=== PATIENT | female | born 1990 | race Caucasian/White ===

== ENCOUNTER 2023-11-10 14:20 | Emergency (ER) | payer BC, SELFPAY ==
[2023-11-10 14:21] VITALS: BP 192/95; PULSE 82; RESP 19; TEMP 36; O2SAT 98
[2023-11-10 14:35] LABS: Absolute Lymphocyte Count 2.59 X10^3/uL (0.83-4.51); Absolute Neutrophil Count 6.8 X10^3/uL (2.0-7.7); Basophil# 0.05 X10^3/uL; Basophil% 0.5 % (0-1); Eosinophil# 0.06 X10^3/uL; Eosinophils% 0.6 % (0-5); Hematocrit 41.9 % (37-47); Hemoglobin 14.8 g/dL (12.0-15.0); Lymphocyte # 2.59 X10^3/ul (0.83-4.51); Lymphocyte % 25.9 % (19-41); Mean Corp Hgb Conc 35.3 g/dL (32-36); Mean Corpuscular Hgb 31.9 pg (27.0-32.0); Mean Corpuscular Volume 90.3 fL (81-99); Mean Platelet Vol. 10.2 fl (6.2-12.0); Monocyte# 0.48 X10^3/uL; Monocyte% 4.8 % (0-10); NRBC Flagged by Analyzer 0 % (0-5); Neutrophil # 6.79 X10^3/uL (2.7-7.7); Neutrophil % 67.8 % (47-70); Platelet Count 275 K/mm3 (150-450); RBC Distribution Width CV 12.2 % (11.6-14.6); RBC Distribution Width SD 39.8 fl (35.1-43.9); Red Blood Count 4.64 M/mm3 (4.2-5.4)
[2023-11-10 14:42] LABS: Internal QC Validated? YES +Cl - CLEAR BKGD
[2023-11-10 14:43] LABS: Pregnancy, Serum, hCG Quali. NEGATIVE Negative; Record Kit Lot#, Serum Preg. 735774
[2023-11-10 15:02] LABS: Bacteria 0 SEEN /hpf (None Seen); Mucous, Urine 0 SEEN /hpf (<or=2+); White Blood Cells 0 SEEN /hpf (0-5)
[2023-11-10 15:09] LABS: Glucose, Dipstick Normal (Normal); Ketone-Dipstick Negative (Negative); Leukocyte Esterase-Dipstick Negative /ul (Negative); Nitrite-Dipstick Negative (Negative); Occult Blood-Urine 10 /ul (Negative); Protein-Dipstick Negative (Negative); Specific Gravity, Urine 1.015 (1.002-1.030); Urine Bilirubin Dipstick Negative (Negative); Urine Urobilinogen Normal (Normal)
[2023-11-10 15:14] LABS: Color, Urine YELLOW (Yellow); Urine Clarity Sl Cldy (Clear)
[2023-11-10 15:15] LABS: Red Blood Cells-Urine 0-5 SEEN /hpf (0-5); Squamous Epithelial Cells - UA 0-5 SEEN /hpf (5-10)
--- NOTE | 2023-11-10 15:27 | CT_ITS ---
EXAM: CT ABDOMEN AND PELVIS WITH INTRAVENOUS CONTRAST CLINICAL INDICATION: RLQ abdominal pain TECHNIQUE: Helically acquired images were obtained of the abdomen and pelvis with intravenous contrast. This CT exam was performed using one or more of the following dose reduction techniques: automated exposure control, adjustment of the mA and/or kV according to patient size, and/or use of iterative reconstruction technique. CONTRAST: IV 100mL Isovue-370 RADIATION DOSE: CTDIvol = 17.08 mGy, DLP = 1306.75 mGy-cm COMPARISON: No relevant prior studies available. FINDINGS: LIMITATIONS: Exam limited by patient size which causes artifact and decreases resolution. LOWER THORAX: Unremarkable. Lung bases are clear. No cardiomegaly. No significant pericardial effusion. ABDOMEN: LIVER: Fatty liver with hepatomegaly. GALLBLADDER AND BILE DUCTS: Unremarkable. No calcified gallstones. No gallbladder distention or wall edema. No intra- or extrahepatic biliary ductal dilation. PANCREAS: Unremarkable. No focal cystic or solid mass. SPLEEN: Unremarkable. Normal size without focal cystic or solid mass. ADRENALS: Unremarkable. No nodules. KIDNEYS AND URETERS: Unremarkable. Normal renal size and position. No hydronephrosis. STOMACH AND BOWEL: Unremarkable. No stomach or bowel distention. No focal inflammatory change. PELVIS: APPENDIX: No evidence of acute appendicitis. BLADDER: Unremarkable. REPRODUCTIVE: Unremarkable as visualized. No mass. ABDOMEN and PELVIS: INTRAPERITONEAL SPACE: Unremarkable. No ascites or other fluid collection. No free air. BONES/JOINTS: Unremarkable. No suspicious lytic or blastic abnormality. SOFT TISSUES: Unremarkable. No discrete abdominal or pelvic wall hernia. VASCULATURE: Unremarkable. Abdominal aorta is non-dilated. LYMPH NODES: Unremarkable. No enlarged lymph nodes. CT/Abdomen/Pelvis W IV Cont ONLY IMPRESSION: 1. Limited as above. 2. No definite acute or significant abnormality seen. Electronically Signed: Martir Alvarado MD at 17:04 EDT ,
[2023-11-10 15:31] VITALS: BP 158/75; PULSE 82; RESP 16; O2SAT 98
[2023-11-10] MEDS: 0.9% Normal Saline (1000mL) 1,000 ML 999 ML IV (15:34)
[2023-11-10] MEDS: Morphine 4 MG/ML Syringe IV (15:34)
[2023-11-10] MEDS: Ondansetron 4 MG/2 ML Vial IV (15:38)
[2023-11-10] MEDS: Ketorolac 15 MG/ML Vial IV (15:38)
--- NOTE | 2023-11-10 15:46 | EDS_ITS ---
<Statement entered by Peggy Casanova MD - 11/10/23 20:13> I have personally performed a face to face assessment of the patient and have reviewed the DAI Note. Patient presents secondary to lower abdominal pain. She states she was driving to [place] this morning when she got rather abrupt onset of lower abdominal pain. No vomiting or diarrhea. No fever. She denies history of anything similar. Patient lying in bed no acute distress. Head and neck examination unremarkable. Heart is regular rate and rhythm. Lung sounds are clear. Abdomen is soft with mild to moderate tenderness in both the right upper quadrant as well as over the suprapubic region. No guarding or rebound noted. Patient treated with morphine, Zofran, Toradol, and IV fluids. CBC and CMP unremarkable for any acute abnormalities. test is negative. Urinalysis reveals no evidence of infection and no evidence of hematuria. CT scan of the abdomen pelvis reveals no obvious acute abnormalities. On repeat evaluation patient still has significant tenderness in the right upper quadrant. Right upper quadrant ultrasound obtained to better evaluate the gallbladder and this reveals no acute findings. Test results discussed with the patient. She will be treated with analgesics at home and given strict return instructions. HPI History of Present Illness Chief Complaint: Abd Pain Narrative Narrative: Patient is a 33-year-old female with history of obesity, history of C-sections, presenting to the emergency department with 1 day of significant right lower quadrant abdominal pain. Patient states that she was driving to work when the pain started. She then felt sweaty and nauseous. Patient states that while she was at work she could not handle the pain and went home. Patient was crying in bed, and her brought her to the emerged department. She denies any fever or chills. She does complain of nausea. Denies any other abdominal surgeries [id number] Medical History (Updated 11/10/23 @ 18:27 by NIKOS Falk) Hypothyroid Home Medications ?Medication ?Instructions ?Recorded ?Last Taken ?Type dicyclomine 20 mg tablet 20 mg PO TID #14 tabs 11/10/23 Unknown Rx hydrocodone-acetaminophen 5-325mg 1 tab PO Q6H PRN PRN Pain 3 days 11/10/23 Unknown Rx 5mg-325mg #10 TABLETS levothyroxine 100 mcg tablet 100 mcg PO DAILY 11/10/23 Unknown History ondansetron 4 mg disintegrating 4 mg PO Q8H PRN PRN Nausea #10 tabs 11/10/23 Unknown Rx tablet Allergy/AdvReac Type Severity Reaction Status Date / Time No Known Allergies Allergy Verified 11/10/23 14:22 Social History Smoking Status: Former smoker ROS ROS ED ROS Narrative Constitutional: Negative for fever, chills, weight loss, weakness Eyes: Negative for vision loss, vision change, double vision ENT: Negative for any sore throat, ear pain, congestion Cardiovascular: Negative for any chest pain, tightness, palpitations Respiratory: Negative for any cough, sputum production, hemoptysis, dyspnea, dyspnea on exertion, orthopnea Gastrointestinal: Negative for any vomiting, diarrhea, constipation, blood in stool, blood in vomit. Positive for abdominal pain, nausea : Negative for any urinary frequency, dysuria, retention, blood in urine Muscle skeletal: Negative for any neck pain, back pain Neurological: Negative for any headache, syncope, dizziness Skin: Negative for any rashes, itching, abrasions, lacerations Psychiatric: Negative for any depression, anxiety, stress, suicidal ideation, homicidal ideation Hematologic: Negative for any excessive bruising, easy bleeding EXAM Physical Exam Narrative Exam Narrative: Vital signs reviewed. HEET: Head normocephalic atraumatic, TMs clear bilaterally. Posterior pharynx is clear, moist mucous membranes. Nares clear bilaterally. Neck: Supple with no lymphadenopathy or tenderness. No signs of meningismus. Cardiac: Regular rate and rhythm no murmurs gallops or rubs, equal peripheral pulses bilaterally. Respiratory: Lungs clear to auscultation bilaterally. No chest tenderness. Abdomen: Soft, nondistended. No abdominal bruit or pulsatile masses. No hepatosplenomegaly. Patient does have tenderness to the suprapubic area, right lower quadrant. Active bowel sounds in all quadrants. No evidence of any upper abdominal pain, no peritoneal signs. Extremities: No peripheral edema, no signs of gross trauma or deformity. Active full range of motion of all extremities. Neuro: Cranial nerves II through XII intact, no focal neurological deficits. Skin: Clean dry and intact with no rash, purpura, petechiae, vesicles or pustules. Backs/flank: No CVA tenderness, no midline spinal tenderness, no deformity. Psych: Normal mood and affect. No SI, HI or acute psychosis. Const Vital Signs: 11/10/23 14:21 11/10/23 15:31 11/10/23 17:00 Temperature 96.8 F L Temperature Source Temporal Pulse Rate 82 82 65 Respiratory Rate 19 H 16 14 Blood Pressure 192/95 H 158/75 H 130/61 H Blood Pressure Mean 127 102 84 Pulse Ox 98 98 97 Oxygen Delivery Method Room Air Room Air Room Air [facility]DM [facility] Lab Data Labs: Laboratory Results - last 24 hr 11/10/23 11/10/23 14:27 14:54 WBC 10.0 RBC 4.64 Hgb 14.8 Hct 41.9 MCV 90.3 MCH 31.9 MCHC 35.3 RDW Std Deviation 39.8 RDW Coeff of Betty 12.2 Plt Count 275 MPV 10.2 Immature Gran % (Auto) 0.400 Neut % (Auto) 67.8 Lymph % (Auto) 25.9 Bowie % (Auto) 4.8 Eos % (Auto) 0.6 Baso % (Auto) 0.5 Absolute Neuts (auto) 6.8 Absolute Lymphs (auto) 2.59 Nucleated RBC % 0 Sodium 136 Potassium 4.0 Chloride 104 Carbon Dioxide 23.0 Anion Gap 9 BUN 17 Creatinine 0.98 Est GFR (MDRD) Af Amer 84 Est GFR (MDRD) Non-Af 69 BUN/Creatinine Ratio 17.4 Glucose 109 H Calcium 9.1 Total Bilirubin 0.40 AST 26 ALT 36 Alkaline Phosphatase 75 Total Protein 8.5 H Albumin 3.9 Globulin 4.6 H Albumin/Globulin Ratio 0.8 L Serum , Qual NEGATIVE Urine Color YELLOW Urine Clarity Sl Cldy Urine pH 6.0 Ur Specific Morton 1.015 Urine Protein Negative Urine Glucose (UA) Normal Urine Ketones Negative Urine Occult Blood 10 H Urine Nitrite Negative Urine Bilirubin Negative Urine Urobilinogen Normal Ur Leukocyte Esterase Negative Urine RBC 0-5 SEEN Urine WBC 0 SEEN Ur Squamous Epith Cells 0-5 SEEN Urine Bacteria 0 SEEN Urine Mucus 0 SEEN Radiography Diagnostic Testing: Clinical Impression(s) from Imaging Studies Abdomen/Pelvis CT 11/10/23 15:27 IMPRESSION: 1. Limited as above. 2. No definite acute or significant abnormality seen. Electronically Signed: Martir Alvarado MD at 17:04 EDT , Gallbladder Ultrasound 11/10/23 17:16 IMPRESSION: Limited as above. No definite acute or significant abnormality seen. Electronically Signed: Martir Alvarado MD at 18:08 EDT , Treatment and Re-Evaluation :: Differential diagnosis includes however is not limited to: Ovarian cyst, ovarian torsion, acute appendicitis, UTI, pyelonephritis Patient is in no obvious respiratory distress, vital signs are stable, patient appears nontoxic. Patient does appear to be in mild amount of pain. Patient will receive a full abdominal workup including CBC, CMP, lipase, urinalysis, serum . CT scan of the abdomen pelvis with IV contrast will be ordered, patient also received fluids, Zofran, morphine, Toradol. Patient will be reevaluated. Patient's urinalysis was negative for infection. Laboratory values showed a normal CBC, chemistries were unremarkable, patient is not . CT of the abdomen pelvis with IV contrast showed limited as above, no definite acute or significant abnormality seen. At this time, patient continues to have pain to the right upper quadrant, right upper quadrant ultrasound will be ordered. Patient's right upper quadrant ultrasound was negative. At this time, patient be diagnosed with abdominal pain uncertain etiology. She will need to follow-up outpatient. I will provide the patient with nausea medication, Bentyl, a couple days of [place]. She will follow-up with her PCP. Given instruction to return for any worsening symptoms. All questions answered, stable for discharge. Discharge Plan Triage Chief Complaint: Abd Pain ED Midlevel Provider: Joseph Barrera ED Provider: Peggy Casanova Dx/Rx/DC Orders Clinical Impression: Abdominal pain Instructions: Abdominal Pain Prescriptions: New hydrocodone-acetaminophen 5-325 mg tablet 1 tab PO Q6H PRN PRN (Reason: Pain) 3 Days Qty: 10 0RF dicyclomine 20 mg tablet 20 mg PO TID Qty: 14 0RF ondansetron 4 mg tablet,disintegrating 4 mg PO Q8H PRN PRN (Reason: Nausea) Qty: 10 0RF No Action levothyroxine 100 mcg tablet 100 mcg PO DAILY Primary Care Provider: SHARA ALONSO Referrals: SHARA ALONSO CRNP [Primary Care Provider] - Activity Restrictions/Additional Instructions: Please follow-up outpatient. Return for any worsening symptoms. Print Language: [place] Disposition Disposition: Home, Self Care
[2023-11-10 16:18] LABS: ALB/GLOB Ratio 0.8 RATIO (0.9-2.4); AST(SGOT) 26 U/L (15-37); Alanine Aminotransfer ALT/SGPT 36 U/L (13-56); Albumin, Serum 3.9 g/dL (3.2-5.0); Alkaline Phosphatase 75 U/L (45-117); Anion Gap 9 (5-15); BUN 17 mg/dL (7-18); BUN/Creat Ratio 17.4 RATIO (10-20); Calcium,Total 9.1 mg/dL (8.5-10.1); Chloride 104 mmol/L (98-107); Creatinine, Serum 0.98 mg/dL (0.55-1.02); EST Glomerular Filtration Rate 69 mL/min (>60); Est Glom Filt Rate - Afr Amer 84 mL/min (>60); Globulin 4.6 g/dL (2.2-4.2); Glucose 109 mg/dL (74-106); Protein, Total 8.5 g/dL (6.4-8.2); Sodium Level 136 mmol/L (136-145)
[2023-11-10 17:00] VITALS: BP 130/61; PULSE 65; RESP 14; O2SAT 97
--- NOTE | 2023-11-10 17:16 | US_ITS ---
STUDY: ABDOMINAL ULTRASOUND - RIGHT UPPER QUADRANT REASON FOR VISIT: Female, 33 years old PAIN TECHNIQUE: Ultrasound evaluation of the right upper quadrant was performed with real-time and static busch-scale imaging. TECHNICAL QUALITY: Limited. Examination limited due to a combination of factors including obesity and bowel gas. COMPARISON: CT scan of the same day. FINDINGS: Liver: The liver measures 18.1 cm. There is normal echogenicity of the liver. The bile ducts are within normal limits. There is hepatic color flow. The direction of portal flow is hepatopetal. There is no demonstrated mass lesion. Gallbladder: Normal distended gallbladder. The gallbladder wall measures 2.1 mm. There is a negative sonographic Hayes''s sign. There is no pericholecystic fluid. There are no gallstones. Common Bile Duct (C.B.D.): The common bile duct measures 4 mm. Pancreas: Normal size of the head, body and tail of the pancreas. There is normal echogenicity of the pancreas. There is no demonstrated pancreatic mass or cyst. Right Kidney: Normal size of the right kidney. The right kidney measures 11.5 cm. Normal renal cortex. The right cortex measures 1.1 cm. There is no demonstrated renal mass or cyst. There is no right hydronephrosis. US/Gallbladder IMPRESSION: Limited as above. No definite acute or significant abnormality seen. Electronically Signed: Martir Alvarado MD at 18:08 EDT ,
[2023-11-10 18:33] VITALS: BP 130/61; PULSE 77; RESP 16; TEMP 36.7; O2SAT 98
== END 2023-11-10 19:12 | disposition home or self-care (01) ==
PROVIDERS: Emergency Provider Emergency Medicine; PCP Nurse Practitioner Adult Health; Visit Provider Emergency Medicine
DX: R10.31 Right lower quadrant pain (principal); R11.0 Nausea; E03.9 Hypothyroidism, unspecified; Z79.890 Hormone replacement therapy; Z79.899 Other long term (current) drug therapy; Z87.891 Personal history of nicotine dependence
CPT/HCPCS: 74177; 76705; 80053; 81001; 84703; 85025; 96361; 96374; 96375; 99284; J7030; Q9967; A4216; J2405

== ENCOUNTER 2025-05-04 21:29 | Emergency (ER) | payer BC, SELFPAY ==
[2025-05-04 21:29] VITALS: BP 207/99; PULSE 95; RESP 20; TEMP 36.8; O2SAT 100; BMI 55.5
--- NOTE | 2025-05-04 21:41 | CT_ITS ---
PROCEDURE: ABDOMEN/PELVIS W IV CONT ONLY 05/04/2025 REASON FOR EXAM: LOWER ABD PAIN TECHNIQUE: Procedure Code: [id number] Modality: CT Procedure: ABDOMEN/PELVIS W IV CONT ONLY Coronal and Sagittal reconstruction series were provided. CONTRAST: Isovue 370 VOLUME: 97 mL One or more dose reduction techniques were used (e.g., Automated exposure control, adjustment of the mA and/or kV according to patient size, use of iterative reconstruction technique. RADIATION DOSE SUMMARY: CTDlvol: 24.18 mGy DLP: 1352.08 mGycm COMPARISON: 11.10.2023 FINDINGS: The liver is again seen enlarged and measures 19 cm in midclavicular line. There are no focal enhancing liver lesions. No intra- or extrahepatic biliary duct dilatation is identified. The hepatic vasculature is patent. The gallbladder fossa is unremarkable. The spleen, pancreas, and adrenal glands are unremarkable. The kidneys are normal in size and attenuation with lobulated contour. There is no hydronephrosis or perinephric fat stranding. No renal calculi are identified. The ureters are normal in caliber and no ureteral calculi are seen. No focal or diffuse bowel wall thickening or bowel obstruction is identified. The appendix is unremarkable. Diffuse colonic fecal loading is seen likely reflecting constipation, recommend clinical correlation. The abdominal aorta and inferior vena cava appear unremarkable. No adenopathy is seen. No free intraperitoneal fluid, fluid collection or free air is identified. The urinary bladder is partially distended and show no abnormalities. Unremarkable appearance of the pelvic organs. No aggressive-appearing osseous lesions are identified. The included lower chest cuts show no gross abnormalities. CT/Abdomen/Pelvis W IV Cont ONLY IMPRESSION: No acute abnormalities detected. Hepatomegaly, unchanged. Diffuse colonic fecal loading seen likely reflecting constipation, recommend c linical correlation. Reading [facility]
[2025-05-04 21:53] VITALS: BP 186/88; PULSE 90; RESP 14; O2SAT 98
[2025-05-04] MEDS: 0.9% Normal Saline (1000mL) 1,000 ML 999 ML IV (21:53)
[2025-05-04 21:56] LABS: Mucous, Urine 0 SEEN /hpf (<or=2+); Squamous Epithelial Cells - UA 0 SEEN /hpf (5-10)
[2025-05-04 21:57] VITALS: BP 162/89; PULSE 86; RESP 14; O2SAT 100
[2025-05-04 21:58] LABS: Color, Urine Yellow (Yellow); Glucose, Dipstick Normal (Normal); Hematocrit 41.4 % (37-47); Hemoglobin 14.4 g/dL (12.0-15.0); Immature Granulocytes Count 0.030 X10^3/uL (0.0-0.0); Ketone-Dipstick Negative (Negative); Leukocyte Esterase-Dipstick Negative /ul (Negative); Mean Corp Hgb Conc 34.8 g/dL (32-36); Mean Corpuscular Volume 91.0 fL (81-99); Mean Platelet Vol. 10.0 fl (6.2-12.0); NRBC Flagged by Analyzer 0 % (0-5); Nitrite-Dipstick Negative (Negative); Occult Blood-Urine 50 /ul (Negative); Platelet Count 334 K/mm3 (150-450); Protein-Dipstick Negative (Negative); RBC Distribution Width CV 12.2 % (11.6-14.6); RBC Distribution Width SD 40.6 fl (35.1-43.9); Red Blood Count 4.55 M/mm3 (4.2-5.4); Specific Gravity, Urine 1.025 (1.002-1.030); Urine Bilirubin Dipstick Negative (Negative); White Blood Count 11.6 K/mm3 (4.4-11.0)
--- OUTSIDE RECORDS SUMMARY | 2025-05-04 22:05 | XMS RPT_ITS | CCD ---
Author Organization [facility] Care Team Providers Care Cat Driver Name Role Phone LISBETH BRUSH CNP Admitting Unavailabl LISBETH Grant CNP Primary Care Unavailabl e LISBETH BRUSH CNP Attending Unavailabl e BECK SANTILLAN Consulting Unavailable PROVIDER, UNKNOWN Consulting Unavailable TYRELL, BECK Admitting Unavailable BECK SANTILLAN Primary Care Unavailable BECK SANTILLAN Consulting Unavailable BECK SANTILLAN Attending Unavailable PROVIDER, UNKNOWN Consulting Unavailable Peggy Casanova Attending Unavailable MAST, NAOMI Primary Care Unavailable MAST MOLD CHECKER-CLINICAL PARTNER, NAOMI Primary Care Physician ([phone] MAST MOLD CHECKER-CLINICAL PARTNER, NAOMI Attending Unavailabl e MAST MOLD CHECKER-CLINICAL PARTNER, NAOMI Primary Care Unavailabl e MAST MOLD CHECKER-CLINICAL PARTNER, NAOIM Attending Unavailabl e MAST MOLD CHECKER-CLINICAL PARTNER, NAOMI Primary Care Unavailabl e Mast CLINICAL PARTNER, Naomi Primary Care Provider [phone] MAST, NAOMI Primary Care Unavailable MAST MOLD CHECKER-CLINICAL PARTNER, NAOMI Attending Unavailabl e MAST MOLD CHECKER-CLINICAL PARTNER, NAOMI Primary Care Unavailabl e Medications Current Medications Medication Drug Class(es) Dates Sig (Normalized) Sig (Original) 200 actuat albuterol 0.09 mg/actuat metered dose inhaler (1 source) beta2-Adrenergic Agonist Start: 01-19-2008 ALBUTEROL 90 MCG/ACTUATION AEROSOL INHALER 0 01/19/2008 Active amoxicillin 875 mg / clavulanate 125 mg oral tablet (1 source) Penicillin-class Antibacterial Start: 04-01-2024 End: 04-06-2024 take 1 tablet by mouth twice daily amoxicillin-clav ulanate potassium (AUGMENTIN) 875-125 mg per tablet Take 1 tablet by mouth two times a day for 5 days. 10 tablet 04/01/2024 04/06/2024 Active 12 hr buPROPion hydrochloride 150 mg extended release oral tablet (2 sources) Aminoketone Start: 03-26-2024 take 1 tablet by mouth every twelve hours buPROPion SR (WELLBUTRIN SR) 150 mg 12 hr tablet Take 1 tablet by mouth every 12 hours. 03/26/2024 Active Start: 03-26-2024 take 1 tablet by major th every hour, then take 1 tablet by mouth twice daily Wellbutrin SR 150 mg/12 hours oral tablet, extended release Dose : 150 mg = 1 tab(s), Oral, BID, # 60 tab(s), 2 Refill(s), [facility]: [facility][id number], 167, cm, 03/20/24 8:33:00 EDT, Height, kg, 03/20/24 8:33:00 EDT, Dosing Weight Start Date: 03/26/24 Status: Ordered Medication Dispense Status: Completed Quantity: 60.0 Unit: tab(s) Total Allowed Fills: 3 Fills Dispensed: 0 CPAP Supplies (1 source) Start: 01-23-2024 CPAP Supplies See Instructions, Full setup (mask/tubing/water res), # 1 EA, 3 Refill(s), Sleep apnea, 151 Start Date: 01/23/24 Status: Ordered Medication Dispense Status: Completed Quantity: 1.0 Unit: EA Total Allowed Fills: 4 Fills Dispensed: 0 Indications: Sleep apnea, unspecified; hydroCHLOROthiazide 25 mg oral tablet (4 sources) Thiazide Diuretic Start: 01-17-2025 hydroCHLOROthiazide 25 mg oral tablet Dose : 25 mg = 1 tab(s), Oral, qDay, # 90 tab(s), 1 Refill(s), Pharmacy: [facility]/pharmacy #[id number], 168, cm, 01/11/25 14:39:00 EDT, Height, kg, 01/11/25 14:39:00 EDT, Dosing Weight Start Date: 01/17/25 Status: Ordered Medication Dispense Status: Completed Quantity: 90.0 Unit: tab(s) Total Allowed Fills: 2 Fills Dispensed: 0 Start: 03-26-2024 take 1 tablet by mouth once hy droCHLOROthiazide 25 mg tablet Take 1 tablet by mouth every afternoon. 03/26/2024 Active Start: 12-20-2023 hydroCHLOROthi azide 25 mg oral tablet Dose : 25 mg = 1 tab(s), Oral, qDay, # 30 tab(s), 2 Refill(s), Pharmacy: [facility] #[id number], 167, cm, 12/20/23 8:58:00 EDT, Height, kg, 12/20/23 8:58:00 EDT, Dosing Weight Start Date: 12/20/23 Status: Ordered levothyroxine sodium 0.1 mg oral tablet (4 sources) l-Thyroxine Start: 01-17-2025 levothyroxine 100 mcg (0.1 mg) oral tablet Dose : 100 mcg = 1 tab(s), Oral, qDay, # 90 tab(s), 1 Refill(s), Pharmacy: [facility]/pharmacy #[id number], Keke's thyroiditis, 168, cm, 01/11/25 14:39:00 EDT, Height, kg, 01/11/25 14:39:00 EDT, Dosing Weight Start Date: 01/17/25 Status: Ordered Medication Dispense Status: Completed Quantity: 90.0 Unit: tab(s) Total Allowed Fills: 2 Fills Dispensed: 0 Indications: Autoimmune thyroiditis; Start: 03-26-2024 take 1 tablet by mouth once le vothyroxine (SYNTHROID) 100 mcg tablet Take 1 tablet by mouth every afternoon. 03/26/2024 Active Start: 10-18-2023 End: 01-16-2024 levothyroxine 100 mcg (0.1 m g) oral tablet Dose : 100 mcg = 1 tab(s), Oral, qDay, # 30 tab(s), 2 Refill(s), Pharmacy: [facility] #[id number], Keke's thyroiditis, 166, cm, 10/18/23 10:06:00 EDT, Height, kg, 10/18/23 10:06:00 EDT, Dosing Weight Start Date: 10/18/23 Stop Date: 01/16/24 Status: Ordered oxybutynin chloride 5 mg oral tablet (3 sources) Cholinergic Muscarinic Antagonist Start: 03-26-2024 take 1 tablet by mouth every twelve hours oxybutynin (DITROPAN) 5 mg tablet Take 1 tablet by mouth every 12 hours. 03/26/2024 Active Start: 12-21-2023 End: 03-20-2024 oxybutynin 5 mg oral tablet Dose : 5 mg = 1 tab(s), Oral, BID, # 60 tab(s), 2 Refill(s), [facility]: [facility][id number], OAB (overactive bladder), 167, cm, 12/20/23 8:58:00 EDT, Height, kg, 12/20/23 8:58:00 EDT, Dosing Weight Start Date: 12/21/23 Stop Date: 03/20/24 Status: Ordered [id number]-PM-UJI-FE- FA TAB (1 source) Start: 01-19-2008 MULTI JLT-QB-NBW-FE-FA TAB TAKE ONE DAILY 0 01/19/2008 Active Problems Active Problems Problem Classification Problem Date Documented Date Episodic/Chronic Abdominal pain (1 source) Right lower quadrant pain; Translations: [Right lower quadrant pain] Onset: 11-16-2023 Episodic Coma; stupor; and brain damage (3 sources) Daytime somnolence 12-20-2023 Episodic Genitourinary symptoms and ill-defined conditions (3 sources) Increased frequency of urination 12-20-2023 Episodic Nutritional deficiencies (1 source) Vitamin D deficiency, unspecified; Translations: [Vitamin D deficiency, unspecified] Onset: 07-21-2021 Chronic Other connective tissue disease (3 sources) Swelling of lower limb 12-20-2023 Episodic Other nutritional; endocrine; and metabolic disorders (3 sources) Body mass index 40+ - severely obese 10-18-2023 Chronic Other screening for suspected conditions (not mental disorders or infectious disease) (6 sources) Encounter for screening for cardiovascular disorders; Translations: [Encounter for screening for diabetes mellitus] Onset: 12-20-2023 Episodic Other upper respiratory infections (1 source) Sinusitis; Translations: [Chronic sinusitis, unspecified] 04-01-2024 Chronic Residual codes; unclassified (1 source) Obstructive sleep apnea syndrome 01-11-2025 Chronic Residual codes; unclassified (1 source) Sleep apnea 01-23-2024 Chronic Residual codes; unclassified (3 sources) Family history of renal cell carcinoma 12-20-2023 Episodic Comment on above: 1/2 sister Thyroid disorders (15 sources) Hypothyroidism, unspecified; Translations: [Keke thyroiditis] Onset: 07-03-2008 10-18-2023 Chronic Unclassified (9 sources) Patient encounter status 10-18-2023 Past or Other Problems Problem Classification Problem Date Documented Da te Episodic/Chronic Other complications of (1 source) Supervision of other high risk pregnancies, unspecified trimester; Translations: [Supervision of other high-risk ] Onset: 05-09-2009 05-09-2009 Episodic Other and delivery including normal (1 source) Normal in primigravida; Translations: [Encounter for supervision of normal first , unspecified trimester] Onset: 01-19-2008 Resolved: 10-17-2008 10-17-2008 Episodic Results Test Name Value Interpretation Reference Range Facility .GFRon 01-15-2025 Estimated Glomerular Filtration Rate 79 ml/min/1.73sqm Normal [facility] Comment on above: Result Comment: Stages of Chronic Kidney Disease (CKD) Stage Description eGFR(ml/min/1.73 sq.m.) CKD 1 Normal kidney function or >=90 normal kindney function with possible kidney damage (ex. Proteinuria) CKD 2 Kidney damage with mild loss 60-89 of kidney function CKD 3a Mild to moderate loss of kidney 45-59 function CKD 3b Moderate to severe loss of 30-44 of kindey function CKD 4 Severe loss of kidney function 15-29 CKD 5 Kidney failure <15 Note: (go live 2024) the eGFR calculation was updated to the 2020 CKD-EPI creatinine equation without a race factor to calculate the eGFR results. Performed By: #### B MP, GFR, LIPID, TSH #### [address] [address] BMPon 01-15-2025 BUN/Creatinine Ratio 15 ratio Normal 7-27 [facility] Comment on above: Performed By: #### B MP, GFR, LIPID, TSH #### [address] [place], [place] [address] Calcium [Mass/Vol] 9.2 mg/dL Normal 8.4-10.2 [facility] Comment on above: Performed By: #### B MP, GFR, LIPID, TSH #### [address] [place], [place] [address] Chloride [Moles/Vol] 104 mmol/L Normal 98-107 [facility] Comment on above: Performed By: #### B MP, GFR, LIPID, TSH #### [address] [address] CO2 [Moles/Vol] 28 mmol/L Normal 22-29 [facility] Comment on above: Performed By: #### B MP, GFR, LIPID, TSH #### [address] [address] Creatinine [Mass/Vol] 0.96 mg/dL High 0.51-0.95 [facility] Comment on above: Performed By: #### B MP, GFR, LIPID, TSH #### [address] [address] Electrolyte Balance 7.0 mEq/L Normal 4.0-15.[address] [facility] Comment on above: Performed By: #### B MP, GFR, LIPID, TSH #### [address] [address] Glucose [Mass/Vol] 91 mg/dL Normal 70-105 [facility] Comment on above: Performed By: #### B MP, GFR, LIPID, TSH #### [address] [address] Potassium [Moles/Vol] 4.3 mmol/L Normal 3.5-5.1 [facility] Comment on above: Performed By: #### B MP, GFR, LIPID, TSH #### [address] [address] Sodium [Moles/Vol] 139 mmol/L Normal 136-145 [facility] Comment on above: Performed By: #### B MP, GFR, LIPID, TSH #### [address] [address] Urea nitrogen [Mass/Vol] 14 mg/dL Normal 7-18 [facility] Comment on above: Performed By: #### B MP, GFR, LIPID, TSH #### [address] [address] LABORATORYOrdered By: SYSTEM SYSTEM on 01-15-2025 Calcium [Mass/Vol] 9.2 mg/dL Normal 8.4 - 10. 2 mg/dL AO ADM SS Chloride [Moles/Vol] 104 mmol/L Normal 98 - 10 7 mmol/L AO ADM SS CO2 [Moles/Vol] 28 mmol/L Normal 22 - 29 mmol/L AO ADM SS Creatinine [Mass/Vol] 0.96 mg/dL High 0.51 - 0.95 mg/dL AO ADM SS Electrolyte Balance 7.0 mEq/L Normal 4.0 - 15 .0 mEq/L AO ADM SS Estimated Glomerular Filtration Rate 79 ml/min/1.73sqm Invalid Interpretation Code AO Chemistry S Comment on above: Interpretive Data: Stages of Chronic Kidney Disease (CKD) Stage Description eGFR(ml/min/1.73 sq.m.) CKD 1 Normal kidney function or >=90 normal kindney function with possible kidney damage (ex. Proteinuria) CKD 2 Kidney damage with mild loss 60-89 of kidney function CKD 3a Mild to moderate loss of kidney 45-59 function CKD 3b Moderate to severe loss of 30-44 of kindey function CKD 4 Severe loss of kidney function 15-29 CKD 5 Kidney failure <15 Note: (go live 2024) the eGFR calculation was updated to the 2020 CKD-EPI creatinine equation without a race factor to calculate the eGFR results. Glucose [Mass/Vol] 91 mg/dL Normal 70 - 105 mg/dL AO ADM SS Potassium [Moles/Vol] 4.3 mmol/L Normal 3.5 - 5.1 mmol/L AO ADM SS Sodium [Moles/Vol] 139 mmol/L Normal 136 - 145 mmol/L AO ADM SS TSH Qn 2.85 m[IU]/L Normal 0.36 - 3.74 mcIU/mL AO ADM SS Urea nitrogen [Mass/Vol] 14 mg/dL Normal 7 - 18 mg/dL AO ADM SS Urea nitrogen/Creatinine [Mass ratio] 15 ratio Normal 7 - 27 ratio AO ADM SS LABORATORYOrdered By: Domenic Hayes on 01-15-2025 Cholesterol [Mass/Vol] 223 mg/dL High 0 - 200 mg/dL AO ADM SS Comment on above: Interpretive Data: C holesterol Reference Interval: Less than 200 Desirable 200-239 Borderline high risk 240 and above High risk Cholesterol in HDL [Mass/Vol] 39 mg/dL Low 40 - 60 mg/dL AO ADM SS Cholesterol in LDL [Mass/Vol] 155 mg/dL High 0 - 130 mg/dL AO ADM SS Triglyceride [Mass/Vol] 143 mg/dL Normal 0 - 150 mg/dL AO ADM SS Comment on above: Interpretive Data: T riglyceride Reference Interval: Less than 150 Normal 150-199 Borderline high risk 200-499 High risk 500 or higher Very high risk LIPIDon 01-15-2025 Cholesterol [Mass/Vol] 223 mg/dL High 0-200 [facility] Comment on above: Result Comment: Chol esterol Reference Interval: Less than 200 Desirable 200-239 Borderline high risk 240 and above High risk Performed By: #### B MP, GFR, LIPID, TSH #### [address] [address] Cholesterol in HDL [Mass/Vol] 39 mg/dL Low 40-60 [facility] Comment on above: Performed By: #### B MP, GFR, LIPID, TSH #### [address] [address] Cholesterol in LDL [Mass/Vol] 155 mg/dL High 0-130 [facility] Comment on above: Performed By: #### B MP, GFR, LIPID, TSH #### [address] [address] Triglyceride [Mass/Vol] 143 mg/dL Normal 0-150 [facility] Comment on above: Result Comment: Trig lyceride Reference Interval: Less than 150 Normal 150-199 Borderline high risk 200-499 High risk 500 or higher Very high risk Performed By: #### B MP, GFR, LIPID, TSH #### [address] [address] TSHon 01-15-2025 TSH Qn 2.85 m[IU]/L Normal 0.36-3.74 [facility] Comment on above: Performed By: #### B MP, GFR, LIPID, TSH #### [address] [address] CNOVon 04-01-2024 CNOV Office Visit (UCWSTR ) DERREK CURRIE ([id number]) 1990 F Date Time Provider Department 04/01/24 10:45 AM TAMARA LAO UCCOURTNEYTR During your visit today, we recorded the following information about you: Temperature Pulse Respiration Blood pressure 100.1 degrees 114/minute 18/minute 124/80 Weight 144.9 kg Tamara Lao APRN.CNP 04/01/2024 11:22 AM Signed This note was created using CareWireriter. Subjective DERREK Currie is a 33 year old female. Cough Associated symptoms include headaches and myalgias. Review of Systems Constitutional: Positive for fever. Respiratory: Positive for cough. Musculoskeletal: Positive for myalgias. Neurological: Positive for dizziness and headaches. Objective BP 124/80 Pulse 114 Temp 37.8 ?C (100.1 ?F) Resp 18 Wt (!) 144.9 kg (319 lb 7.1 oz) LMP 10/13/2008 SpO2 95% Physical Exam Assessment and Plan ASSESSMENT/PLAN: 1. Sinuitis - ICD9: 473.9, ICD10: J32.9 - Will begin treatment with Augmentin 875 mg PO BID for 5 days - Supportive care with plenty of fluids, rest, and analgesia prn. - Follow up in 3-5 days if symptoms persist or worsen. Tamara Lao APRN.CNP Medical Decision Making: Problems: Low: Acute, uncomplicated illness or injury Risk: Moderate: Drug management Medical Decision Making Level: 3 - Low Allergies As of Date: 04/01/2024 (No Known Allergies) Date Reviewed: 04/01/2024 Reviewed by: Mackenzie Perrin MA - Fully Assessed Reason for Visit: Cough [28] Cmt: headache, fever and bodyaches x 3 days Primary Visit Diagnosis:Sinuitis [J32.9] Order(s):amoxicillin-c lavulanate potassium (AUGMENTIN) 875-125 mg per tabletTake 1 tablet by mouth two times a day for 5 days.Disp: 10 tabletRfl: 0 Prescriptions as of 04/01/2024 - buPROPion SR (WELLBUTRIN SR) 150 mg 12 hr tablet Take 1 tablet by mouth every 12 hours. - hydroCHLOROthiazide 25 mg tablet Take 1 tablet by mouth every afternoon. - levothyroxine (SYNTHROID) 100 mcg tablet Take 1 tablet by mouth every afternoon. - oxybutynin (DITROPAN) 5 mg tablet Take 1 tablet by mouth every 12 hours. - amoxicillin-clavulanat e potassium (AUGMENTIN) 875-125 mg per tablet Take 1 tablet by mouth two times a day for 5 days. - QVQODFHQ-UM-IGV-FE-FA TAB TAKE ONE DAILY - ALBUTEROL 90 MCG/ACTUATION AEROSOL INHALER Problem List As Of Date 04/01/2024 Noted Resolved SUPERVIS NORMAL 1ST PREG [Z34.00] 01/19/2008 10/17/2008 ACQUIRED HYPOTHYROID NEC [E03.8] 07/03/2008 Supervision of Other High-Risk [O09.8*05/09/2009 Prescriptions ordered this encounter Disp Refills Start End AMOXICILLIN 875 MG-POTASSIUM CLAVULA* 10 t* 0 04/01/2024 04/06/2024 Route: ORAL Sig: Take 1 tablet by mouth two times a day for 5 days. Encounter Status:Closed by TAMARA LAO on 04/01/24 Normal [facility] A1Con 12-20-2023 Glucose [Mass/Vol] 97 mg/dL [facility] Comment on above: Result Comment: Marina mated Average Glucose calculated by equation ((28.7xA1C)-46.7) Performed By: #### T SH, LIPID, A1C #### [address] [address] HbA1c (Bld) [Mass fraction] 5.0 % Normal 4.3-6.4 [facility] ([place]) Comment on above: Performed By: #### T SH, LIPID, A1C #### [address] [address] LABORATORYOrdered By: Ja Patel on 12-20-2023 Cholesterol [Mass/Vol] 246 mg/dL High 0 - 200 mg/dL AO ADM SS Comment on above: Interpretive Data: C holesterol Reference Interval: Less than 200 Desirable 200-239 Borderline high risk 240 and above High risk Cholesterol in HDL [Mass/Vol] 45 mg/dL Normal 40 - 60 mg/dL AO ADM SS Cholesterol in LDL [Mass/Vol] 161 mg/dL High 0 - 130 mg/dL AO ADM SS Triglyceride [Mass/Vol] 200 mg/dL High 0 - 150 mg/dL AO ADM SS Comment on above: Interpretive Data: T riglyceride Reference Interval: Less than 150 Normal 150-199 Borderline high risk 200-499 High risk 500 or higher Very high risk LABORATORYOrdered By: SYSTEM SYSTEM on 12-20-2023 Glucose [Mass/Vol] 97 mg/dL Invalid Interpretation Code AO Chemistry S HbA1c (Bld) [Mass fraction] 5.0 % Normal 4.3 - 6.4 % AO ADM SS TSH Qn 2.60 m[IU]/L Normal 0.36 - 3.74 mcIU/mL AO ADM SS LIPIDon 12-20-2023 Cholesterol [Mass/Vol] 246 mg/dL High 0-200 [facility] ([place] Comment on above: Result Comment: Chol esterol Reference Interval: Less than 200 Desirable 200-239 Borderline high risk 240 and above High risk Performed By: #### T ROMERO, LIPID, A1C #### [address] [address] Cholesterol in HDL [Mass/Vol] 45 mg/dL Normal 40-60 [facility] ([place]) Comment on above: Performed By: #### T ROMERO, LIPID, A1C #### [address] [address] Cholesterol in LDL [Mass/Vol] 161 mg/dL High 0-130 [facility] ([place]) Comment on above: Performed By: #### T ROMERO, LIPID, A1C #### [address] [address] Triglyceride [Mass/Vol] 200 mg/dL High 0-150 [facility] ([place] Comment on above: Result Comment: Trig lyceride Reference Interval: Less than 150 Normal 150-199 Borderline high risk 200-499 High risk 500 or higher Very high risk Performed By: #### T SH, LIPID, A1C #### [address] [address] TSHon 12-20-2023 TSH Qn 2.60 m[IU]/L Normal 0.36-3.74 [facility] ([place]) Comment on above: Performed By: #### T SH, LIPID, A1C #### [address] [place], [place] [address] Abdomen/Pelvis W IV Cont ONL Yon 11-10-2023 Abdomen/Pelvis W IV Cont ONLY [facility] [address] [place], [place] [address] Abdomen/Pelvis W IV Cont ONLY MR#: [id number] Acct: [id number] Name: DERREK CURRIE Rep #: [id number] : 1990 F 33 From: Martir hollis MD PCP: HUBERT SESAY Status: REG ER Study: Abdomen/Pelvis W IV Cont ONLY Date of Exam: Exam# [id number] Ordering Dr: Joseph Barrera COPY WRITER-C [id number] EXAM: CT ABDOMEN AND PELVIS WITH INTRAVENOUS CONTRAST CLINICAL INDICATION: RLQ abdominal pain TECHNIQUE: Helically acquired images were obtained of the abdomen and pelvis with intravenous contrast. This CT exam was performed using one or more of the following dose reduction techniques: automated exposure control, adjustment of the mA and/or kV according to patient size, and/or use of iterative reconstruction technique. CONTRAST: IV 100mL Isovue-370 RADIATION DOSE: CTDIvol = 17.08 mGy, DLP = 1306.75 mGy-cm COMPARISON: No relevant prior studies available. FINDINGS: LIMITATIONS: Exam limited by patient size which causes artifact and decreases resolution. LOWER THORAX: Unremarkable. Lung bases are clear. No cardiomegaly. No significant pericardial effusion. ABDOMEN: LIVER: Fatty liver with hepatomegaly. GALLBLADDER AND BILE DUCTS: Unremarkable. No calcified gallstones. No gallbladder distention or wall edema. No intra- or extrahepatic biliary ductal dilation. PANCREAS: Unremarkable. No focal cystic or solid mass. SPLEEN: Unremarkable. Normal size without focal cystic or solid mass. ADRENALS: Unremarkable. No nodules. KIDNEYS AND URETERS: Unremarkable. Normal renal size and position. No hydronephrosis. STOMACH AND BOWEL: Unremarkable. No stomach or bowel distention. No focal inflammatory change. PELVIS: APPENDIX: No evidence of acute appendicitis. BLADDER: Unremarkable. REPRODUCTIVE: Unremarkable as visualized. No mass. ABDOMEN and PELVIS: INTRAPERITONEAL SPACE: Unremarkable. No ascites or other fluid collection. No free air. BONES/JOINTS: Unremarkable. No suspicious lytic or blastic abnormality. SOFT TISSUES: Unremarkable. No discrete abdominal or pelvic wall hernia. VASCULATURE: Unremarkable. Abdominal aorta is non-dilated. LYMPH NODES: Unremarkable. No enlarged lymph nodes. CT/Abdomen/Pelvis W IV Cont ONLY IMPRESSION: 1. Limited as above. 2. No definite acute or significant abnormality seen. Electronically Signed: Martir Alvarado MD at 17:04 EDT , CC: NIKOS Barrera; HUBERT SESAY Elevator Operator: Signed Normal [facility] CBC W/Diff, Automatedon 10-28 Absolute Lymph 2.59 X10 3/uL Normal 0.83-4.51 [facility] Comment on above: Performed By: #### L 700.6800, L100.0100, L500.4050 #### [facility] [address] [place], [address] Absolute Neut 6.8 X10 3/uL Normal 2.0-7.7 [facility] Comment on above: Performed By: #### L 700.6800, L100.0100, L500.4050 #### [facility] [address] [place], [address] Basophils/100 WBC (Bld) 0.5 % Normal 0-1 [facility] Comment on above: Performed By: #### L 700.6800, L100.0100, L500.4050 #### [facility] [address] [place], [address] Eosinophils/100 WBC (Bld) 0.6 % Normal 0-5 [facility] Comment on above: Performed By: #### L 700.6800, L100.0100, L500.4050 #### [facility] [address] [place], [address] Erythrocyte distribution width (RBC) [Ratio] 12.2 % Normal 11.6-14.6 [facility] Comment on above: Performed By: #### L 700.6800, L100.0100, L500.4050 #### [facility] [address] [place], [address] Hematocrit (Bld) [Volume fraction] 41.9 % Normal 37-47 [facility] Comment on above: Performed By: #### L 700.6800, L100.0100, L500.4050 #### [facility] [address] [place], [address] Hemoglobin (Bld) [Mass/Vol] 14.8 g/dL Normal 12.0-15.0 [facility] Comment on above: Performed By: #### L 700.6800, L100.0100, L500.4050 #### [facility] [address] [place], [address] IG% 0.400 Normal 0.0-0.9 [facility] Comment on above: Result Comment: IG% - Immature Granulocytes (promyelocytes, myelocytes and metamyelocytes) > 1% indicates that a LEFT SHIFT is Present. Performed By: #### L 700.6800, L100.0100, L500.4050 #### [facility] [address] [place], [address] Lymphocytes/100 WBC (Bld) 25.9 % Normal 19-41 [facility] Comment on above: Performed By: #### L 700.6800, L100.0100, L500.4050 #### [facility] [address] [place], [address] MCH (RBC) [Entitic mass] 31.9 pg Normal 27.0-32.0 [facility] Comment on above: Performed By: #### L 700.6800, L100.0100, L500.4050 #### [facility] [address] [place], [address] MCHC (RBC) [Mass/Vol] 35.3 g/dL Normal 32-36 [facility] Comment on above: Performed By: #### L 700.6800, L100.0100, L500.4050 #### [facility] [address] [place], [address] MCV (RBC) [Entitic vol] 90.3 fL Normal 81-99 [facility] Comment on above: Performed By: #### L 700.6800, L100.0100, L500.4050 #### [facility] [address] [place], [address] Monocytes/100 WBC (Bld) 4.8 % Normal 0-10 [facility] Comment on above: Performed By: #### L 700.6800, L100.0100, L500.4050 #### [facility] [address] [place], [address] Neutrophils/100 WBC (Bld) 67.8 % Normal 47-70 [facility] Comment on above: Performed By: #### L 700.6800, L100.0100, L500.4050 #### [facility] [address] [place], [address] Nucleated RBC (Bld) [#/Vol] 0 10*3/uL Normal 0-5 [facility] Comment on above: Performed By: #### L 700.6800, L100.0100, L500.4050 #### [facility] [address] [place], [address] Platelet mean volume (Bld) [Entitic vol] 10.2 fL Normal 6.2-12.0 [facility] Comment on above: Performed By: #### L 700.6800, L100.0100, L500.4050 #### [facility] [address] [place], [address] Platelets (Bld) [#/Vol] 275 10*3/uL Normal 150-450 [facility] Comment on above: Performed By: #### L 700.6800, L100.0100, L500.4050 #### [facility] [address] [place], [address] RBC (Bld) [#/Vol] 4.64 10*6/uL Normal 4.2-5.4 [facility] Comment on above: Performed By: #### L 700.6800, L100.0100, L500.4050 #### [facility] [address] [place], [address] RDW SD 39.8 fl Normal 35.1-43.9 [facility] Comment on above: Performed By: #### L 700.6800, L100.0100, L500.4050 #### [facility] [address] [place], [address] WBC (Bld) [#/Vol] 10.0 10*3/uL Normal 4.4-11.0 [facility] Comment on above: Performed By: #### L 700.6800, L100.0100, L500.4050 #### [facility] [address] [place], [address] Comprehensive Metabolic Prof [facility] 11-10-2023 Albumin [Mass/Vol] 3.9 g/dL Normal 3.2-5.0 [facility] Comment on above: Performed By: #### L 700.6800, L100.0100, L500.4050 #### [facility] [address] [place], [address] Albumin/Globulin [Mass ratio] 0.8 {ratio} Low 0.9-2.4 [facility] Comment on above: Performed By: #### L 700.6800, L100.0100, L500.4050 #### [facility] [address] [place], [address] ALK P 75 U/L Normal 45-117 [facility] Comment on above: Performed By: #### L 700.6800, L100.0100, L500.4050 #### [facility] [address] [place], [address] ALT [Catalytic activity/Vol] 36 U/L Normal 13-56 [facility] Comment on above: Performed By: #### L 700.6800, L100.0100, L500.4050 #### [facility] [address] [place], [address] AST [Catalytic activity/Vol] 26 U/L Normal 15-37 [facility] Comment on above: Performed By: #### L 700.6800, L100.0100, L500.4050 #### [facility] [address] [place], [address] Bilirubin [Mass/Vol] 0.40 mg/dL Normal 0.20-1.00 [facility] Comment on above: Result Comment: For patients on eltrombopag therapy, use of Dimension [place] TBIL is not recommended. Performed By: #### L 700.6800, L100.0100, L500.4050 #### [facility] [address] [place], [address] BUN/CRE 17.4 RATIO Normal 10-20 [facility] Comment on above: Performed By: #### L 700.6800, L100.0100, L500.4050 #### [facility] [address] [place], [address] CA,Total 9.1 mg/dL Normal 8.5-10.1 [facility] Comment on above: Performed By: #### L 700.6800, L100.0100, L500.4050 #### [facility] [address] [place], [address] Chloride [Moles/Vol] 104 mmol/L Normal 98-107 [facility] Comment on above: Performed By: #### L 700.6800, L100.0100, L500.4050 #### [facility] [address] [place], [address] CO2 [Moles/Vol] 23.0 mmol/L Normal 21.0-32.0 [facility] Comment on above: Performed By: #### L 700.6800, L100.0100, L500.4050 #### [facility] [address] [place], [address] Creatinine [Mass/Vol] 0.98 mg/dL Normal 0.55-1.02 [facility] Comment on above: Result Comment: The validity of the calculated GFR GFRAA in patients over 70 years has not been determined. Clinical correlation is essential. Performed By: #### L 700.6800, L100.0100, L500.4050 #### [facility] [address] [place], [address] EST GFR - AA 84 mL/min Normal >60 [facility] Comment on above: Result Comment: Afri can Palauan GFR Calc Performed By: #### L 700.6800, L100.0100, L500.4050 #### [facility] [address] [place], [address] GAP 9 Normal 5-15 [facility] Comment on above: Performed By: #### L 700.6800, L100.0100, L500.4050 #### [facility] [address] [place], [address] GFR/1.73 sq M.predicted among non-blacks MDRD (S/P/Bld) [Vol rate/Area] 69 mL/min/{1.73_m2} Normal >60 [facility] Comment on above: Result Comment: Non- GFR Calc Performed By: #### L 700.6800, L100.0100, L500.4050 #### [facility] [address] [place], [address] Globulin (S) [Mass/Vol] 4.6 g/dL High 2.2-4.2 [facility] Comment on above: Performed By: #### L 700.6800, L100.0100, L500.4050 #### [facility] [address] [place], [address] Glucose [Mass/Vol] 109 mg/dL High 74-106 [facility] Comment on above: Result Comment: Fast ing Glucose result from 100 to 125 mg/dL suggests IMPAIRED HOMEOSTASIS per A.D.A. criteria. Performed By: #### L 700.6800, L100.0100, L500.4050 #### [facility] [address] [place], [address] Potassium [Moles/Vol] 4.0 mmol/L Normal 3.5-5.1 [facility] Comment on above: Performed By: #### L 700.6800, L100.0100, L500.4050 #### [facility] [address] [place], [address] Sodium [Moles/Vol] 136 mmol/L Normal 136-145 [facility] Comment on above: Performed By: #### L 700.6800, L100.0100, L500.4050 #### [facility] [address] [place], [address] T PROT 8.5 g/dL High 6.4-8.2 [facility] Comment on above: Performed By: #### L 700.6800, L100.0100, L500.4050 #### [facility] [address] [place], [address] Urea nitrogen [Mass/Vol] 17 mg/dL Normal 7-18 [facility] Comment on above: Performed By: #### L 700.6800, L100.0100, L500.4050 #### [facility] [address] [place], [address] Emergency Department Summary on 11-10-2023 Emergency Department Summary [facility] Medical Records Department [address] [place] [address] Emergency Department Summary 11/10/23 MR#: [id number] Acct: [id number] Name: DERREK CURRIE Rep #: [id number] : 1990 33 From: Peggy Casanova MD PCP: HUBERT SESAY Status:DEP ER Location: ED I have personally performed a face to face assessment of the patient and have reviewed the DAI Note. Patient presents secondary to lower abdominal pain. She states she was driving to [place] this morning when she got rather abrupt onset of lower abdominal pain. No vomiting or diarrhea. No fever. She denies history of anything similar. Patient lying in bed no acute distress. Head and neck examination unremarkable. Heart is regular rate and rhythm. Lung sounds are clear. Abdomen is soft with mild to moderate tenderness in both the right upper quadrant as well as over the suprapubic region. No guarding or rebound noted. Patient treated with morphine, Zofran, Toradol, and IV fluids. CBC and CMP unremarkable for any acute abnormalities. test is negative. Urinalysis reveals no evidence of infection and no evidence of hematuria. CT scan of the abdomen pelvis reveals no obvious acute abnormalities. On repeat evaluation patient still has significant tenderness in the right upper quadrant. Right upper quadrant ultrasound obtained to better evaluate the gallbladder and this reveals no acute findings. Test results discussed with the patient. She will be treated with analgesics at home and given strict return instructions. HPI History of Present Illness Chief Complaint: Abd Pain Narrative Narrative: Patient is a 33-year-old female with history of obesity, history of C-sections, presenting to the emergency department with 1 day of significant right lower quadrant abdominal pain. Patient states that she was driving to work when the pain started. She then felt sweaty and nauseous. Patient states that while she was at work she could not handle the pain and went home. Patient was crying in bed, and her brought her to the emerged department. She denies any fever or chills. She does complain of nausea. Denies any other abdominal surgeries [facility] Medical History (Updated 11/10/23 @ 18:27 by NIKOS Falk) Hypothyroid Home Medications ???Medication ???Instructions ???Recorded ???Last Taken ???Type dicyclomine 20 mg tablet 20 mg PO TID #14 tabs 11/10/23 Unknown Rx hydrocodone-acetaminop hen 5-325mg 1 tab PO Q6H PRN PRN Pain 3 days 11/10/23 Unknown Rx 5mg-325mg #10 TABLETS levothyroxine 100 mcg tablet 100 mcg PO DAILY 11/10/23 Unknown History ondansetron 4 mg disintegrating 4 mg PO Q8H PRN PRN Nausea #10 tabs 11/10/23 Unknown Rx tablet Allergy/AdvReac Type Severity Reaction Status Date / Time No Known Allergies Allergy Verified 11/10/23 14:22 Social History Smoking Status: Former smoker ROS ROS ED ROS Narrative Constitutional: Negative for fever, chills, weight loss, weakness Eyes: Negative for vision loss, vision change, double vision ENT: Negative for any sore throat, ear pain, congestion Cardiovascular: Negative for any chest pain, tightness, palpitations Respiratory: Negative for any cough, sputum production, hemoptysis, dyspnea, dyspnea on exertion, orthopnea Gastrointestinal: Negative for any vomiting, diarrhea, constipation, blood in stool, blood in vomit. Positive for abdominal pain, nausea : Negative for any urinary frequency, dysuria, retention, blood in urine Muscle skeletal: Negative for any neck pain, back pain Neurological: Negative for any headache, syncope, dizziness Skin: Negative for any rashes, itching, abrasions, lacerations Psychiatric: Negative for any depression, anxiety, stress, suicidal ideation, homicidal ideation Hematologic: Negative for any excessive bruising, easy bleeding EXAM Physical Exam Narrative Exam Narrative: Vital signs reviewed. HEET: Head normocephalic atraumatic, TMs clear bilaterally. Posterior pharynx is clear, moist mucous membranes. Nares clear bilaterally. Neck: Supple with no lymphadenopathy or tenderness. No signs of meningismus. Cardiac: Regular rate and rhythm no murmurs gallops or rubs, equal peripheral pulses bilaterally. Respiratory: Lungs clear to auscultation bilaterally. No chest tenderness. Abdomen: Soft, nondistended. No abdominal bruit or pulsatile masses. No hepatosplenomegaly. Patient does have tenderness to the suprapubic area, right lower quadrant. Active bowel sounds in all quadrants. No evidence of any upper abdominal pain, no peritoneal signs. Extremities: No peripheral edema, no signs of gross trauma or deformity. Active full range of motion of all extremities. Neuro: Cranial nerves II through XII intact, no focal neurological deficits. Skin: Clean dry and intact with no rash, purpura (more content not included)... Normal [facility] Gallbladderon 11-10-2023 Gallbladder [facility] [address] [place] [id number] Gallbladder MR#: [id number] Acct: [id number] Name: DERREK CURRIE Rep #: [id number] : 1990 F 33 From: Martir hollis MD PCP: HUBERT SESAY Status: REG ER Study: Gallbladder Date of Exam: 11/10/23 Exam# [id number] Ordering Dr: Joseph Barrera COPY WRITER-C [id number] STUDY: ABDOMINAL ULTRASOUND - RIGHT UPPER QUADRANT REASON FOR VISIT: Female, 33 years old PAIN TECHNIQUE: Ultrasound evaluation of the right upper quadrant was performed with real-time and static busch-scale imaging. TECHNICAL QUALITY: Limited. Examination limited due to a combination of factors including obesity and bowel gas. COMPARISON: CT scan of the same day. FINDINGS: Liver: The liver measures 18.1 cm. There is normal echogenicity of the liver. The bile ducts are within normal limits. There is hepatic color flow. The direction of portal flow is hepatopetal. There is no demonstrated mass lesion. Gallbladder: Normal distended gallbladder. The gallbladder wall measures 2.1 mm. There is a negative sonographic Hayes''s sign. There is no pericholecystic fluid. There are no gallstones. Common Bile Duct (C.B.D.): The common bile duct measures 4 mm. Pancreas: Normal size of the head, body and tail of the pancreas. There is normal echogenicity of the pancreas. There is no demonstrated pancreatic mass or cyst. Right Kidney: Normal size of the right kidney. The right kidney measures 11.5 cm. Normal renal cortex. The right cortex measures 1.1 cm. There is no demonstrated renal mass or cyst. There is no right hydronephrosis. US/Gallbladder IMPRESSION: Limited as above. No definite acute or significant abnormality seen. Electronically Signed: Martir Alvarado MD at 18:08 EDT , CC: NIKOS Barrera; HUBERT SESAY Elevator Operator: Signed Normal [facility] ,Serum,hCG Quali.on 11-10-2023 HCG, SERUM QUAL Negative Normal [facility] Comment on above: Performed By: #### L 700.6800, L100.0100, L500.4050 #### [facility] [address] [place], [address] Urinalysis, Completeon 11-09 EPI,SQUAMOUS 0-5 SEEN Normal 5-10 [facility] Comment on above: Order Comment: CLEAN CATCH Performed By: #### L 400.0001 #### [facility] [address] [place], [address] RBC 0-5 SEEN Normal 0-5 [facility] Comment on above: Order Comment: CLEAN CATCH Performed By: #### L 400.0001 #### [facility] [address] [place], [address] BACTERIA 0 SEEN Normal None Seen [facility] Comment on above: Order Comment: CLEAN CATCH Performed By: #### L 400.0001 #### [facility] [address] [place], [address] Mucus Ql (Urine sed) 0 SEEN Normal [facility] Comment on above: Order Comment: CLEAN CATCH Performed By: #### L 400.0001 #### [facility] [address] [place], [address] WBC 0 SEEN Normal 0-5 [facility] Comment on above: Order Comment: CLEAN CATCH Performed By: #### L 400.0001 #### [facility] [address] [place], [address] [facility] 03-29-2022 [place] [address] Patient: DERREK CURRIE Phone#: : 1990 Age: 31 Gender: F Pt. Type: Out Account: [id number] Location: Ordering: LISBETH BRUSH Exam Date: 03/29/2022/17:51 Family Phys: BECK SANTILLAN Charge Code: 245818 Physician: Andrews Order #: [id number] Dose#: PROCEDURE: PELVIC ULTRASOUND, TRANSABDOMINAL ENDOVAGINAL COMPARISON: None. INDICATIONS: Irregular menstruation. TECHNIQUE: Pelvic ultrasound using transabdominal and endovaginal technique. FINDINGS: UTERUS: Size is 9.4 x 5.2 x 5.5 cm with unremarkable appearance. Endometrial thickness is 4.6 mm. ADNEXAE: Normal bilateral appearance with no significant masses. Right ovary is 4.4 x 1.9 x 2.6 cm. Left ovary is 2.8 x 1.7 x 2.3 cm. CUL-DE-SAC: Normal. No fluid or mass. OTHER: Negative. CONCLUSION: 1. Unremarkable pelvic ultrasound. Dictated by: Annamaria Yancey MD on 03/29/2022 at 18:13 Approved by: Annamaria Yancey MD on 03/29/2022 at 18:16 Normal [facility] PELVIC ENDO VAGINALon PELVIC ENDO VAGINAL [place] [id number] Patient: DERREK CURRIE Phone#: : 1990 Age: 31 Gender: F Pt. Type: Out Account: [id number] Location: Ordering: LISBETH BRUSH Exam Date: 03/29/2022/17:51 Family Phys: BECK SANTILLAN Charge Code: 801824 Physician: Andrews Order #: [id number] Dose#: PROCEDURE: PELVIC ULTRASOUND, TRANSABDOMINAL ENDOVAGINAL COMPARISON: None. INDICATIONS: Irregular menstruation. TECHNIQUE: Pelvic ultrasound using transabdominal and endovaginal technique. FINDINGS: UTERUS: Size is 9.4 x 5.2 x 5.5 cm with unremarkable appearance. Endometrial thickness is 4.6 mm. ADNEXAE: Normal bilateral appearance with no significant masses. Right ovary is 4.4 x 1.9 x 2.6 cm. Left ovary is 2.8 x 1.7 x 2.3 cm. CUL-DE-SAC: Normal. No fluid or mass. OTHER: Negative. CONCLUSION: 1. Unremarkable pelvic ultrasound. Dictated by: Annamaria Yancey MD on 03/29/2022 at 18:13 Approved by: Annamaria Yancey MD on 03/29/2022 at 18:16 Normal [facility] T4-FREE (FREE THYROXINE)on 0 07-21-2021 Free T4 [Mass/Vol] 0.94 ng/dL Normal 0.76 - 1.46 [facility] Comment on above: Result Comment: P otential of falsely elevated results when biotin concentrations are > 10 ng/mL. Performed By: #### 2 [id number] #### [facility],[address] [place], [place] [id number] TSHon 07-21-2021 TSH Qn 3.69 m[IU]/L Normal 0.35 - 3.74 [facility] Comment on above: Performed By: #### 2 40042 #### [facility],[address] [place] [address] VITAMIN D, 25 HYDROXYon 07-01 VitD 23.00 ng/mL Low 30.00 - 100 [facility] Comment on above: Result Comment: 25-O HD3 indicates both endogenous production and supplementation. 25-OHD2 is an indicator of exogenous sources, such as diet or supplementation. Therapy is based on measurement of Total 25-OHD, with levels <20 ng/mL indicative of Vitamin D deficiency, while levels between 20 ng/mL and 30 ng/mL suggest insufficiency. Optimal levels are >=30ng/mL. Vitamin D, 25-OH D3 Not Established Vitamin D, 25-OH D2 Not Established Performed By: #### 2 [id number] #### [facility],[address] [place] [address] Coronavirus 2019on 0 COVID 19 Result COPY WRITER Normal Negative for COVID19 (SARS CoV2) by PCR. [facility] Comment on above: Result Comment: Nega tive for This test was developed and its performance characteristics determined by [facility] [place]. This test has been authorized by FDA under an Emergency Use Authorization (EUA). This test has been validated in accordance with the FDA's Guidance Document Policy for Diagnostics Testing in Laboratories Certified to Perform High Complexity Testing under CLIA prior to Emergency use Authorization for Coronavirus Disease 2019 during the Public Health Emergency issued on July 28, 2019. COVID19 (SARS This test was developed and its performance characteristics determined by [facility] [place]. This test has been authorized by FDA under an Emergency Use Authorization (EUA). This test has been validated in accordance with the FDA's Guidance Document Policy for Diagnostics Testing in Laboratories Certified to Perform High Complexity Testing under CLIA prior to Emergency use Authorization for Coronavirus Disease 2019 during the Public Health Emergency issued on July 28, 2019. CoV2) by PCR. This test was developed and its performance characteristics determined by [facility] [place]. This test has been authorized by FDA under an Emergency Use Authorization (EUA). This test has been validated in accordance with the FDA's Guidance Document Policy for Diagnostics Testing in Laboratories Certified to Perform High Complexity Testing under CLIA prior to Emergency use Authorization for Coronavirus Disease 2019 during the Public Health Emergency issued on July 28, 2019. Coronavirus 2019on 0 COVID 19 Source COPY WRITER COPY WRITER Normal [facility] VitD, 1,25 Dihydroxyon 12-24 1,25 Dihydroxy VitD2 <4.0 Normal [facility] Comment on above: Performed By: #### 1 25VTD #### [facility] [address] [place] [phone] 1,25 Dihydroxy VitD3 41.8 pg/mL Normal [facility] Comment on above: Performed By: #### 1 25VTD #### [facility] [address] [place] [phone] Vit D,1,25 DiOH Normal 15.0-60.0 [facility] Comment on above: Result Comment: 41.8 This test was developed and its performance characteristics determined by [facility] [place] ([facility]). It has not been cleared or approved by the FDA. [facility] is regulated under CLIA as qualified to perform high complexity testing. This test is used for clinical purposes. It should not be regarded as investigational or for research. Performed By: #### 1 25VTD #### [facility] [address] [place] [address] HepB SurfaceAb,Quanton 04-12 HepB SurfaceAb,Quant 26.45 mIU/mL High <8.00 [facility] Comment on above: Performed By: #### A HBSQ, MEASLG, MUMPSG, RUBIGG #### [facility] Routine Lab [address] [place] [address] Measles IgG Antibodyon 04-12 Measles IgG Ab, Qual Abnormal Negative [facility] Comment on above: Result Comment: Posi tive Presence of detectable measles virus IgG antibodies. A positive result generally indicates exposure to measles virus or previous vaccination. Performed By: #### A HBSQ, MEASLG, MUMPSG, RUBIGG #### [facility] [address] [place] [address] Measles IgG Antibody Normal [facility] Comment on above: Result Comment: 129. 0 AU/mL Negative Specimens <13.5 Equivocal Specimens >=13.5 to <16.5 Positive Specimens >=16.5 The magnitude of the measured result, above the cutoff, is not indicative of the amount of antibody present. Value Negative Specimens <13.5 Equivocal Specimens >=13.5 to <16.5 Positive Specimens >=16.5 The magnitude of the measured result, above the cutoff, is not indicative of the amount of antibody present. interpreted as Negative Specimens <13.5 Equivocal Specimens >=13.5 to <16.5 Positive Specimens >=16.5 The magnitude of the measured result, above the cutoff, is not indicative of the amount of antibody present. follows: Negative Specimens <13.5 Equivocal Specimens >=13.5 to <16.5 Positive Specimens >=16.5 The magnitude of the measured result, above the cutoff, is not indicative of the amount of antibody present. Performed By: #### A HBSQ, MEASLG, MUMPSG, RUBIGG #### [facility] [address] [place] [address] Mumps IgG Abon 04-12-2019 Mumps IgG Ab 125.0 AU/mL Normal [facility] Comment on above: Performed By: #### A HBSQ, MEASLG, MUMPSG, RUBIGG #### [facility] [address] [place] [address] Mumps IgG, Qual Positive Abnormal Negative [facility] Comment on above: Performed By: #### A HBSQ, MEASLG, MUMPSG, RUBIGG #### [facility] [address] [place] [address] Rubella IgG Antibodyon 04-12 Rubella IgG Ab 7.77 Index Value Normal [facility] Comment on above: Performed By: #### A HBSQ, MEASLG, MUMPSG, RUBIGG #### [facility] Routine Lab [address] [place], [place] [address] Rubella IgG Ab, Qual Positive Abnormal Negative [facility] Comment on above: Performed By: #### A HBSQ, MEASLG, MUMPSG, RUBIGG #### [facility] [address] [place], [place] [address] CMPon 02-15-2019 Albumin [Mass/Vol] 3.9 g/dL Normal 3.4-5.0 [facility] Comment on above: Performed By: #### 2 [id number] #### [facility] [address] [place], [place] [address] Albumin/Globulin [Mass ratio] 1.4 {ratio} Normal 1.1-1.9 [facility] Comment on above: Performed By: #### 2 [id number] #### [facility] [employer] [address] [place] [address] Alk Phos 64 Int._Unit/L Normal 33-110 [facility] Comment on above: Performed By: #### 2 [id number] #### DEN[facility]SE [employer] [facility] [place] [address] ALT [Catalytic activity/Vol] 15 Int._Unit/L Normal 7-45 [facility] Comment on above: Performed By: #### 2 160675 #### DENISSE [employer] [facility] [place] [address] Anion gap [Moles/Vol] 11 mmol/L Normal 10-20 [facility] Comment on above: Performed By: #### 2 [id number] #### [facility] [employer] [facility] [place] [address] AST [Catalytic activity/Vol] 13 Int._Unit/L Normal 9-39 [facility] Comment on above: Performed By: #### 2 [id number] #### [facility] [employer] [facility] [place] [address] Bili Total 0.42 mg/dL Normal 0.00-1.20 [facility] Comment on above: Performed By: #### 2 [id number] #### [facility] [address] [place] [address] Calcium [Mass/Vol] 8.3 mg/dL Low 8.6-10.3 [facility] Comment on above: Performed By: #### 2 [id number] #### DENISSE [employer] [address] [place] [address] Chloride [Moles/Vol] 104 mmol/L Normal 98-107 [facility] Comment on above: Performed By: #### 2 [id number] #### DENISSE [employer] [address] [place] [address] CO2 [Moles/Vol] 27.0 mmol/L Normal 21.0-32.0 [facility] Comment on above: Performed By: #### 2 [id number] #### DENISSE [employer] [address] [place] [address] Creatinine [Mass/Vol] 1.0 mg/dL Normal 0.5-1.1 [facility] Comment on above: Performed By: #### 2 [id number] #### DENISSE [employer] [address] [place] [address] Globulin (S) [Mass/Vol] 3.0 g/dL Normal 2.0-4.0 [facility] Comment on above: Performed By: #### 2 935008 #### DENISSE [employer] [address] [place] [address] Glucose [Mass/Vol] 97 mg/dL Normal 70-99 [facility] Comment on above: Performed By: #### 2 394961 #### DENISSE [employer] [address] [place] [address] Potassium [Moles/Vol] 4.3 mmol/L Normal 3.5-5.3 [facility] Comment on above: Performed By: #### 2 778553 #### DENISSE [employer] [address] [place] [address] Protein [Mass/Vol] 6.7 g/dL Normal 6.4-8.2 [facility] Comment on above: Performed By: #### 2 453446 #### DENISSE [employer] [address] [place] [address] Sodium [Moles/Vol] 137 mmol/L Normal 136-145 [facility] Comment on above: Performed By: #### 2 761991 #### DENISSE [employer] [facility] [place] [address] Urea nitrogen [Mass/Vol] 22 mg/dL Normal 6-23 [facility] Comment on above: Performed By: #### 2 553103 #### DENISSE [employer] [facility] [place] [address] Urea nitrogen/Creatinine [Mass ratio] 22.0 ratio Normal 5.4-30.0 [facility] Comment on above: Performed By: #### 2 137561 #### DENISSE GundersonChem [facility] [place] [address] eGFRon 02-15-2019 GFR/1.73 sq M predicted among non-blacks MDRD (S/P/Bld) [Vol rate/Area] mL/min/{1.73_m2} Normal [facility] Comment on above: Order Comment: Order added by Discern Expert. Performed By: #### 1 [id number] #### DENISSE [place] [place] [place] [address] XR Ankle 3+ Views Righton XR Ankle 3+ Views Right Exam Date/Time: 01/24/2019 22:57 EDT Reason for Exam: Injury Report STUDY: XR Ankle 3+ Views Right; 01/24/2019 10:57 pm INDICATION: Injury. COMPARISON: None. ACCESSION NUMBER(S): [id number] ORDERING CLINICIAN: Robin Dang FINDINGS: Three views right ankle. No acute fracture or malalignment. No osseous destruction or abnormal periosteal bone formation. The ankle mortise is symmetric. IMPRESSION: No acute osseous abnormality. FINAL REPORT Dictated: 01/25/2019 1:05 am Aileen Castro MD Signed (Electronic Signature): 01/25/2019 1:05 am Signed by: Aileen Castro MD Technologist: MONICA Normal [facility] Auto Diffon 04-09-2018 Basophils (Bld) [#/Vol] 0.1 E3/mcL Normal 0.0-0.2 [facility] Comment on above: Order Comment: Order Added by Discern Expert. Performed By: #### 2 [id number] #### DENISSE RemHemo [address] [place] [address] Basophils/100 WBC (Bld) 0.9 % Normal 0.0-2.0 [facility] Comment on above: Order Comment: Order Added by Discern Expert. Performed By: #### 2 [id number] #### DENISSE RemHemo [address] [place] [address] Eos Absolute 0.1 E3/mcL Normal 0.0-0.7 [facility] Comment on above: Order Comment: Order Added by Discern Expert. Performed By: #### 2 537395 #### DENISSE RemHemo [address] [place] [address] Eosinophils/100 WBC (Bld) 1.3 % Normal 0.0-11.0 [facility] Comment on above: Order Comment: Order Added by Discern Expert. Performed By: #### 2 763651 #### DENISSE RemHemo [address] [place] [address] Lymphocytes (Bld) [#/Vol] 2.8 E3/mcL Normal 1.2-3.4 [facility] Comment on above: Order Comment: Order Added by Discern Expert. Performed By: #### 2 [id number] #### DENISSE RemHemo [address] [place] [address] Lymphocytes/100 WBC (Bld) 42.8 % Normal 20.0-55.0 [facility] Comment on above: Order Comment: Order Added by Discern Expert. Performed By: #### 2 476085 #### DENISSE RemHemo [address] [place] [address] Alexander Absolute 0.5 E3/mcL Normal 0.0-0.7 [facility] Comment on above: Order Comment: Order Added by Discern Expert. Performed By: #### 2 711428 #### DENSISE RemHemo [address] [place] [address] Monocytes/100 WBC (Bld) 6.8 % Normal 0.0-10.0 [facility] Comment on above: Order Comment: Order Added by Discern Expert. Performed By: #### 2 687753 #### DENISSE GundersonHemo [address] [place] [address] Neutro Absolute 3.2 E3/mcL Normal 1.4-6.5 [facility] Comment on above: Order Comment: Order Added by Discern Expert. Performed By: #### 2 037714 #### DENISSE GundersonHemo [facility] [place] [id number] Neutro Auto 48.2 % Normal 37.0-75.0 [facility] Comment on above: Order Comment: Order Added by Discern Expert. Performed By: #### 2 698168 #### DENISSE [employer] [address] [place], [place] [address] CBC w/ Auto Diffon Erythrocyte distribution width (RBC) [Ratio] 12.9 % Normal 11.5-14.5 [facility] Comment on above: Performed By: #### 2 957813 #### DENISSE [employer] [address] [place], [place] [address] Hematocrit (Bld) [Volume fraction] 40.5 % Normal 36.0-48.0 [facility] Comment on above: Performed By: #### 2 560834 #### DENISSE [employer] [address] [place], [place] [address] Hemoglobin (Bld) [Mass/Vol] 14.0 g/dL Normal 12.0-16.0 [facility] Comment on above: Performed By: #### 2 727909 #### DENISSE GundersonHemo [address] [place], [place] [address] MCH (RBC) [Entitic mass] 32.4 pg High 27.0-31.0 [facility] Comment on above: Performed By: #### 2 398012 #### DENISSE GundersonHemo [address] [place] [address] MCHC (RBC) [Mass/Vol] 34.6 g/dL Normal 33.0-37.0 [facility] Comment on above: Performed By: #### 2 949956 #### DENISSE GundersonHemo [address] [place] [address] MCV (RBC) [Entitic vol] 93.7 fL Normal 78.0-100.0 [facility] Comment on above: Performed By: #### 2 723972 #### DENISSE GundersonHemo [address] [place] [address] Platelet mean volume (Bld) [Entitic vol] 8.9 fL Normal 7.4-11.0 [facility] Comment on above: Performed By: #### 2 182822 #### DENISSE JalynHemo [address] [place] [address] Platelets (Bld) [#/Vol] 250 E3/mcL Normal 130-400 [facility] Comment on above: Performed By: #### 2 395426 #### DENISSEJermaine GundersonHemo [address] [place] [address] RBC (Bld) [#/Vol] 4.32 E6/mcL Normal 3.90-5.40 [facility] Comment on above: Performed By: #### 2 309567 #### DENISSE JalynHemo [address] [place] [address] WBC (Bld) [#/Vol] 6.6 E3/mcL Normal 3.6-11.0 [facility] Comment on above: Performed By: #### 2 897961 #### DENISSE GundersonHemo [address] [place] [address] CMPon 04-09-2018 Albumin [Mass/Vol] 4.2 g/dL Normal 3.4-5.0 [facility] Comment on above: Performed By: #### 2 987970 #### DENISSE [employer] [address] [place] [address] Albumin/Globulin [Mass ratio] 1.3 {ratio} Normal 1.1-1.9 [facility] Comment on above: Performed By: #### 2 190024 #### DENISSE [address] [address] Alk Phos 69 Int._Unit/L Normal 33-110 [facility] Comment on above: Performed By: #### 2 124149 #### [facility] [address] [id number] ALT [Catalytic activity/Vol] 13 Int._Unit/L Normal 7-45 [facility] Comment on above: Performed By: #### 2 795190 #### DENISSE [employer] [address] [place] [address] Anion gap [Moles/Vol] 10 mmol/L Normal 10-20 [facility] Comment on above: Performed By: #### 2 516015 #### [facility] [employer] [address] [place] [address] AST [Catalytic activity/Vol] 16 Int._Unit/L Normal 9-39 [facility] Comment on above: Performed By: #### 2 247150 #### [facility] [employer] [address] [place] [address] Bili Total 0.5 mg/dL Normal 0.0-1.2 [facility] Comment on above: Performed By: #### 2 485008 #### [facility] [employer] [address] [place] [address] Calcium [Mass/Vol] 9.1 mg/dL Normal 8.6-10.3 [facility] Comment on above: Performed By: #### 2 626900 #### [facility] [employer] [address] [place] [address] Chloride [Moles/Vol] 105 mmol/L Normal 98-107 [facility] Comment on above: Performed By: #### 2 782186 #### DENISSE [employer] [address] [place] [address] CO2 [Moles/Vol] 27.0 mmol/L Normal 21.0-32.0 [facility] Comment on above: Performed By: #### 2 417534 #### DENISSE [employer] [address] [place] [address] Creatinine [Mass/Vol] 0.8 mg/dL Normal 0.5-1.1 [facility] Comment on above: Performed By: #### 2 181037 #### DENISSE [employer] [address] [place] [address] Globulin (S) [Mass/Vol] 3.0 g/dL Normal 2.0-4.0 [facility] Comment on above: Performed By: #### 2 588741 #### DENISSE [employer] [address] [place] [address] Glucose [Mass/Vol] 94 mg/dL Normal 70-99 [facility] Comment on above: Performed By: #### 2 496609 #### DENISSE [employer] [address] [place] [address] Potassium [Moles/Vol] 4.3 mmol/L Normal 3.5-5.3 [facility] Comment on above: Performed By: #### 2 425052 #### DENISSE [employer] [address] [place] [address] Protein [Mass/Vol] 7.4 g/dL Normal 6.4-8.2 [facility] Comment on above: Performed By: #### 2 202881 #### DENISSE [employer] [address] [place], [place] [address] Sodium [Moles/Vol] 138 mmol/L Normal 136-145 [facility] Comment on above: Performed By: #### 2 204400 #### DENISSE [employer] [address] [place] [address] Urea nitrogen [Mass/Vol] 13 mg/dL Normal 6-23 [facility] Comment on above: Performed By: #### 2 563672 #### DENISSE [employer] [address] [place] [address] Urea nitrogen/Creatinine [Mass ratio] 16.2 ratio Normal 5.4-30.0 [facility] Comment on above: Performed By: #### 2 160854 #### DENISSE [employer] [address] [place] [address] TSHon 04-09-2018 TSH Qn 6.61 mcIU/mL High 0.30-5.60 [facility] Comment on above: Performed By: #### 2 073040 #### DENISSE [employer] [address] [place] [address] eGFRon 04-09-2018 GFR/1.73 sq M predicted among non-blacks MDRD (S/P/Bld) [Vol rate/Area] mL/min/{1.73_m2} Normal [facility] Comment on above: Order Comment: Order added by Discern Expert. Performed By: #### 1 [id number] #### DENISSE [address] [address] Vital Signs Date Time Vital Sign Value Performing Clinician Facility 04-01-2024 10:42-0500 Body temperature 100.09 [degF] Tamara La Jara MOLD CHECKER.CLINICAL PARTNER Work Phone: [facility] 04-01-2024 10:42-0500 Body weight 144.9 kg Tamara Tashia MOLD CHECKER.CLINICAL PARTNER Work Phone: [facility] 04-01-2024 10:42-0500 Diastolic blood pressure 80 mm[Hg] Tamara Tashia MOLD CHECKER.CLINICAL PARTNER Work Phone: [facility] 04-01-2024 10:42-0500 Heart rate 114 /min Tamara La Jara MOLD CHECKER.CLINICAL PARTNER Work Phone: [facility] 04-01-2024 10:42-0500 Respiratory rate 18 /min Atmara La Jara MOLD CHECKER.CLINICAL PARTNER Work Phone: [facility] 04-01-2024 10:42-0500 SaO2% (BldA) [Mass fraction] 95 % Tamara La Jara MOLD CHECKER.CLINICAL PARTNER Work Phone: [facility] 04-01-2024 10:42-0500 Systolic blood pressure 124 mm[Hg] Tamara La Jara MOLD CHECKER.CLINICAL PARTNER Work Phone: [facility] 01-16-2024 23:45-0400 Diastolic Blood Pressure Non-Invasive 79 mm[Hg] NAOMI MAST MOLD CHECKER-CLINICAL PARTNER [facility] 01-16-2024 23:45-0400 Systolic Blood Pressure Non-Invasive 126 mm[Hg] NAOMI MAST MOLD CHECKER-CLINICAL PARTNER [facility] Encounters Encounter Date Encounter Type Care Provider Facility Start: 01-15-2025 End: 01-19-2025 ambulatory NAOMI MAST MOLD CHECKER-CLINICAL PARTNER Facility:[facility] Start: 01-15-2025 End: 01-19-2025 Outreach Lab NAOMI MAST MOLD CHECKER-CLINICAL PARTNER [facility] Start: 04-01-2024 End: 04-01-2024 ambulatory NAOMI MAST Facility:[facility] Start: 04-01-2024 End: 04-01-2024 Patient encounter procedure Tamara Lao MOLD CHECKER.CLINICAL PARTNER Work Phone: [facility] Comment on above: Sinuitis (Primary Dx ) Start: 01-16-2024 End: 01-16-2024 ambulatory NAOMI MAST MOLD CHECKER-CLINICAL PARTNER Facility:B Start: 01-16-2024 End: 01-16-2024 Patient encounter procedure NAOMI MAST MOLD CHECKER-CLINICAL PARTNER [facility] Start: 12-20-2023 End: 12-24-2023 ambulatory NAOMI MAST MOLD CHECKER-CLINICAL PARTNER Facility:[facility] Start: 12-20-2023 End: 12-24-2023 Outreach Lab NAOMI MAST MOLD CHECKER-CLINICAL PARTNER [facility] Start: 11-10-2023 End: 11-10-2023 Emergency department patient visit Peggy Casanova Facility:[facility] Start: 03-29-2022 End: 03-29-2022 ambulatory LISBETH YUDITH [facility] Start: 07-21-2021 End: 07-21-2021 ambulatory BECK SANTILLAN [facility] Start: 04-09-2018 Patient encounter procedure Facility:[id number] Procedures Date Procedure Procedure Detail Performing Clinician Start: 05-21-2019 Follow-up visit Plan of Treatment Date Care Activity Detail Author Start: 01-29-2024 Covid-19 Vaccine ( season) Covid-19 Vaccine ( season) [facility] Start: 01-29-2024 Influenza vaccination Influenza Vacc ine (#1) [facility] Start: 05-08-2012 Screening for malign ant neoplasm of cervix Cervical Cancer Screening [facility] Start: 2008 Hepatitis B Vaccine (1 of 3 - 19+ 3-dose series) Hepatitis B Vaccine (1 of 3 - 19+ 3-dose series) [facility] Start: 2008 Urine microalbumin profile DTa P,Tdap,Td Vaccine (1 - Tdap) [facility] Start: 2007 Annual PCP 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 ani Disease Visit Annual PCP Team Chronic Disease Visit [facility] Start: 2007 Anxiety Screening Anxiety Screening [facility] Start: 2007 Depression Screening Depression Scre ening [facility] Start: 2007 Hepatitis C screening Hepatitis C Sc reeotis [facility] Start: 2007 HIV screening HIV Screening [facility] Immunizations Immunization Date Immunization Notes Care Provider Fa cility 01-11-2025 tetanus toxoid, redu pedro diphtheria toxoid, and acellular pertussis vaccine, adsorbed; Translations: [Boostrix (Tdap)] NAOMI MERRITT MOLD CHECKER-CLINICAL PARTNER [facility] Payers Date Payer Category Payer Private Health Insurance [facility] [id number] 2023 Unknown [id number] 2023 Self-pay 2021 Unknown MARIA ISABEL HOOVER PPO [id number] 2021-Present [phone] [id number] [place] [address] PPO [id number] 2021 Unknown [id number] 1989 Unknown [id number] 1989 Unknown [id number] 1989 Unknown [id number] 1989 Unknown [id number] [id number] 1989 Unknown [id number] 627 1989 Unknown [id number] Unknown [id number] Unknown [id number] Unknown [id number] Social History Date Type Detail Facility Start: 12-20-2023 End: 01-11-2025 Tobacco smoking status Never smoked tobacco (finding) [facility] Sex Assigned At Female [facility] Start: 01-19-2008 Tobacco smoking stat NHIS Ex-smoker [facility] Start: 01-04-2005 End: 01-05-2008 History of tobacco use Current smoker [facility] Start: 01-04-2005 End: 01-05-2008 History of tobacco use Cigarette Smoker [facility] Start: 01-13-2022 Alcoholic beverage intake Current non-drinker of alcohol (finding) [facility] Start: 1989 Sex assigned at Not on file [facility] Gender identity Not on file [facility] in Sexual Orientation [facility] Start: 01-03-2020 Sex Female (finding) [facility] Functional Status Date Assessment Result Facility 01-16-2024 Functional Status Sensory Deficits None [facility] Progress note 04-01-2024 Note Date & Type Note Facility 04-01-2024 Note HNO ID: [id number] Author: TAMARA LAO APRN.CLINICAL PARTNER Service: ? Author Type: Nurse Practitioner Type: Progress Notes Filed: 04/01/2024 11:22 Note Text: This note was created using [employer]. Subjective DERREK Currie is a 33 year old female. Cough Associated symptoms include headaches and myalgias. Review of Systems Constitutional: Positive for fever. Respiratory: Positive for cough. Musculoskeletal: Positive for myalgias. Neurological: Positive for dizziness and headaches. Objective BP 124/80 Pulse 114 Temp 37.8 ?C (100.1 ?F) Resp 18 Wt (!) 144.9 kg (319 lb 7.1 oz) LMP 10/13/2008 SpO2 95% Physical Exam Assessment and Plan ASSESSMENT/PLAN: 1. Sinuitis - ICD9: 473.9, ICD10: J32.9 - Will begin treatment with Augmentin 875 mg PO BID for 5 days - Supportive care with plenty of fluids, rest, and analgesia prn. - Follow up in 3-5 days if symptoms persist or worsen. Tamara Lao APRN.CNP Medical Decision Making: Problems: Low: Acute, uncomplicated illness or injury Risk: Moderate: Drug management Medical Decision Making Level: 3 - Low [facility] History of Present illness Narrative 04-01-2024 Tamara Lao APRN.CNP - 04/01/2024 10:52 AM EST Note Date & Type Note Facility 04-01-2024 History of Presen t illness Narrative This note was created using [employer]. Subjective DERREK Currie is a 33 year old female. Cough Associated symptoms include headaches and myalgias. Review of Systems Constitutional: Positive for fever. Respiratory: Positive for cough. Musculoskeletal: Positive for myalgias. Neurological: Positive for dizziness and headaches. Objective BP 124/80 Pulse 114 Temp 37.8 C (100.1 F) Resp 18 Wt (!) 144.9 kg (319 lb 7.1 oz) LMP 10/13/2008 SpO2 95% Physical Exam Assessment and Plan ASSESSMENT/PLAN: 1. Sinuitis - ICD9: 473.9, ICD10: J32.9 - Will begin treatment with Augmentin 875 mg PO BID for 5 days - Supportive care with plenty of fluids, rest, and analgesia prn. - Follow up in 3-5 days if symptoms persist or worsen. Tamara Lao APRN.CNP Medical Decision Making: Problems: Low: Acute, uncomplicated illness or injury Risk: Moderate: Drug management Medical Decision Making Level: 3 - Low documented in this encounter [facility] Evaluation + Plan note Laboratory Note Date & Type Note Facility Evaluation + Plan note Future Appointments Appointment Date:01/03/2024 10:45:00 AM Scheduled Provider: Location:[facility] Appointment Type:PC Nurse BP Check Appointment Date:03/20/2024 08:30:00 AM Scheduled Provider:NAOMI MERRITT Location:[facility] Appointment Type:PC OV Future Scheduled TestsBasic Metabolic Panel 01/18/24Thyroid Stimulating Hormone 01/18/24Lipid Profile 01/18/24 [facility] Evaluation + Plan note Laboratory Note Date & Type Note Facility Evaluation + Plan note Future Appointments Appointment Date:03/20/2024 08:30:00 AM Scheduled Provider:NAOMI MERRITT Location:[facility] Appointment Type:PC OV Future Scheduled TestsBasic Metabolic Panel 01/18/24Thyroid Stimulating Hormone 01/18/24Lipid Profile 01/18/24 [facility] Evaluation + Plan note Laboratory Note Date & Type Note Facility Evaluation + Plan note Future Appointments Appointment Date:12/17/2025 08:00:00 AM Scheduled Provider: Location:[facility] Appointment Type:PC Nurse Lab Appointment Date:12/31/2025 03:00:00 PM Scheduled Provider:NAOMI MERRITT Location:[facility] Appointment Type:PC Wellness Annual Future Scheduled TestsBasic Metabolic Panel 01/18/24Thyroid Stimulating Hormone 01/18/24Lipid Profile 01/18/24 [facility] Evaluation note Note Date & Type Note Facility Evaluation note Diagnosis Sinuitis- Primary documented in this encounter [facility] course Narrative Note Date & Type Note Facility Hospital course Narrative No data available for this section [facility] Hospital Discharge instructions Note Date & Type Note Facility Hospital Discharge instructions No data available for this section [facility] Progress note Note Date & Type Note Facility Progress note No data available for this section [facility] Summary Purpose Family History No Family History Records FoundNo Family History Records FoundNo Family History Records FoundNo Family History Records FoundNo Family History Records FoundNo Family History Records Found No data available for this section No data available for this section No Family History Records FoundNo Family History Records Found No data available for this section No Family History Records Found Advance Directives No Advanced Directives Records FoundNo Advanced Directives Records FoundNo Advanced Directives Records FoundNo Advanced Directives Records FoundNo Advanced Directives Records FoundNo Advanced Directives Records FoundNo Advanced Directives Records FoundNo Advanced Directives Records FoundNo Advanced Directives Records Found Additional Source Comments INFORMATION SOURCE (unrecogn ized section and content) DATE CREATED AUTHOR 05/07/2018 [facility] DATE CREATED AUTHOR AUTHOR'S ORGANIZ ATION 02/19/2019 [facility] DATE CREATED AUTHOR AUTHOR'S ORGANIZ ATION 05/21/2019 [employer] DATE CREATED AUTHOR AUTHOR'S ORGANIZ ATION 03/14/2020 [facility] DATE CREATED AUTHOR AUTHOR'S ORGANIZ ATION 03/30/2022 [facility] DATE CREATED AUTHOR AUTHOR'S ORGANIZ ATION 11/18/2023 [facility] DATE CREATED AUTHOR AUTHOR'S ORGANIZ ATION 01/25/2024 [facility] ([place] DATE CREATED AUTHOR AUTHOR'S ORGANIZ ATION 04/02/2024 [facility] DATE CREATED AUTHOR AUTHOR'S ORGANIZ ATION 01/21/2025 [facility] Patient Care team informatio n (unrecognized section and content) Cat Driver Relationship Specialty Start Date End Date Naomi Merritt CNP [address] [place] [address] [place] [address] PCP - General Family Medicine 04/01/24 Source Comments (unrecognize d section and content) In the event this informatio n is protected by the Federal Confidentiality of Alcohol and Drug Abuse Patient Records regulations: The Federal rules restrict any use of the information to criminally investigate or prosecute any alcohol or drug abuse patient.[facility] Reason for Visit (unrecogniz ed section and content) Reason Comments Cough headache, fever and bodyaches x 3 days FOR RECORDS PERTAINING TO PATIENTS WHO ARE OR HAVE BEEN ENROLLED IN A CHEMICAL DEPENDENCY/SUBSTANCEABUSE PROGRAM, SOME INFORMATION MAY BE OMITTED. This clinical summary was aggregated from multiple sources. Caution should be exercised in using it in the provision of clinical care. This summary normalizes information from multiple sources, and as a consequence, information in this document may materially change the coding, format and clinical context of patient data. In addition, data may be omitted in some cases. CLINICAL DECISIONS SHOULD BE BASED ON THE PRIMARY CLINICAL RECORDS. [facility]. provides no warranty or guarantee of the accuracy or completeness of information in this document.
[2025-05-04 22:17] LABS: Internal QC Validated? YES +Cl - CLEAR BKGD; Pregnancy, Serum, hCG Quali. NEGATIVE Negative
[2025-05-04 22:22] LABS: Lipase 21 U/L (13-75)
[2025-05-04 22:32] LABS: Red Blood Cells-Urine 0-5 SEEN /hpf (0-5)
[2025-05-04 22:35] LABS: AST(SGOT) 22 U/L (<=31); Alanine Aminotransfer ALT/SGPT 22 U/L (<=34); Albumin, Serum 4.4 g/dL (3.5-5.0); Alkaline Phosphatase 83 U/L (35-104); Anion Gap 14 (5-15); BUN 19 mg/dL (4-19); BUN/Creat Ratio 18.1 RATIO (10-20); Bilirubin, Direct 0.09 mg/dL (0.00-0.30); Calcium,Total 9.5 mg/dL (7.6-11.0); Carbon Dioxide 23.8 mmol/L (21.0-32.0); Chloride 101 mmol/L (98-108); Estimated Creatinine Clearance 113.97 ml/min (50-250); Globulin 4.0 g/dL (2.2-4.2); Glucose 107 mg/dL (70-99); Potassium 3.9 mmol/L (3.3-5.1)
[2025-05-04 22:40] VITALS: BP 156/92; PULSE 77; RESP 16; O2SAT 99
[2025-05-05] VITALS: BP 158/65; PULSE 102; RESP 14; O2SAT 98
--- NOTE | 2025-05-05 00:30 | EDS_ITS ---
HPI History of Present Illness Chief Complaint: Abd Pain Informant: patient and spouse/S.O. Narrative Narrative: Patient is a 34-year-old female with past medical history of hypothyroidism. She states roughly an hour prior to arrival she developed lower abdominal discomfort that she describes as sharp in nature. She states it is radiating from the right lower abdomen across to the left side. She states there was no trauma or excessive activity. She denies any recent fevers or chills or known sick contacts. She states there is no dysuria there is no nausea vomiting or diarrhea. As she is unsure what caused her sudden onset of pain she presents for evaluation. [facility] Medical History (Updated 05/05/25 @ 23:[address] Bakari Barillas, DO) Hypothyroid Home Medications ?Medication ?Instructions ?Recorded ?Last Taken ?Type dicyclomine 20 mg tablet 20 mg PO TID #14 tabs Unknown Rx hydrocodone-acetaminophen 5-325mg 1 tab PO Q6H PRN PRN Pain 3 days 11/10/23 Unknown Rx 5mg-325mg #10 TABLETS levothyroxine 100 mcg tablet 100 mcg PO DAILY 11/10/23 Unknown History ondansetron 4 mg disintegrating 4 mg PO Q8H PRN PRN Na usea #10 tabs 11/10/23 Unknown Rx tablet oxycodone-acetaminophen 5 mg-325 1 tab PO Q6H PRN pain 3 days #12 05/05/25 Unknown Rx mg tablet (Percocet) tabs Allergy/AdvReac Type Severity Reaction Status Date / Time No Known Allergies Allergy Verified 05/04/25 21:30 Social History Smoking Status: Former smoker [facility] ED Constitutional Constitutional ED: Denies chills or fever(s) Eyes Eyes: Denies change in vision ENT ENT ED: Denies sore throat Cardiovascular Cardiovascular: Denies chest pain Respiratory/Chest Respiratory/Chest: Denies cough or dyspnea Gastrointestinal Gastrointestinal: Reports abdominal pain; Denies diarrhea, nausea or vomiting Genitourinary Genitourinary ED: Denies dysuria or hematuria Musculoskeletal Musculoskeletal: Denies back pain Integumentary Denies rash Neurologic Neurologic: Denies headache(s) Hematologic/Lymphatic Hematologic/Lymphatic: Denies easy bleeding or easy bruising EXAM Physical Exam Const Vital Signs: 05/05/25 00:00 12/07/25 00:44 Temperature 98.6 F Pulse Rate 102 H 70 Respiratory Rate 14 14 Blood Pressure 158/65 H 145/80 H Blood Pressure Mean 96 101 Pulse Ox 98 100 Oxygen Delivery Method Room Air Positive well nourished, well developed and obese General Appearance ED: well developed; Negative for pallor Nutritional Appearance: obese HEENT Reports moist mucous membranes HEENT Narrative: Normocephalic atraumatic No tongue or lip swelling no oral lesions no airway edema or compromise No secondary findings in the posterior pharynx to suggest infection Eyes PERRL and EOMs intact bilaterally General Eye ED: Negative for scleral icterus Neck supple Neck Narrative: No nuchal rigidity or meningeal signs Resp normal respiratory effort and clear to auscultation bilaterally Cardio regular rate and regular rhythm Rate: other Other Details: Heart is regular rate and rhythm without murmurs rubs or gallops Radial and carotid pulses are equal and symmetric GI non-distended and no masses GI Narrative: Abdomen is soft and nondistended with normal active bowel sounds Patient has diffuse pain on palpation across the lower abdomen No voluntary guarding or rigidity or pulsatile mass No peritoneal signs Auscultation: normoactive bowel sounds Palpation: soft Back/Spine no CVA tenderness Extremity normal to inspection Neuro oriented x3, CN's II-XII intact bilaterally and no sensory deficits noted Sensorium / Orientation: alert Motor Exam: strength 5/5 throughout Psych mental status grossly normal Skin no rashes or lesions noted and no wounds General Skin Exam: Negative for jaundice or pallor MDM MDM MDM Narrative Medical decision making narrative: Patient arrived to ER hypertensive otherwise with stable vitals. She reported sudden onset of generalized lower abdominal pain that was sharp in nature. Patient symptoms could be atypical for appendicitis or kidney stone or potentially UTI or diverticulitis. Secondary to this basic blood work and a CT scan with IV contrast was ordered. Patient's white count is only slightly elevated at 11.6 and her neutrophil count is normal. I feel the elevation of the white count is stress response. Otherwise there is no signs of acute kidney injury and her liver enzymes are normal going against biliary complications such as biliary colic or acute cholecystitis. This also does not correlate with lower abdominal pain. Lipase is normal going against pancreatitis. Urine shows no sign of infection going against UTI his pyelonephritis. There is a small amount of blood present in the urine which could correlate with a kidney stone although patient states she recently just finished her menstrual cycle. The CT scan revealed no sign of kidney stone or signs of acute appendicitis or intestinal infection. After being medicated in the ER the patient had resolut ion of her pain and her blood pressure improved with this. Therefore this time she does not have urosepsis or acute kidney injury CT scan does not show findings for intestinal infection or obstructive stone and her pain is improved so therefore I feel no need for further intervention in the ER and she is otherwise safe for discharge History & Record Review Discussion w/independent historian: Patient and Significant other Lab Data Attestation: I reviewed the patient's lab results. Labs: Laboratory Results - last 24 hr 05/04/25 21:53 WBC 11.6 H RBC 4.55 Hgb 14.4 Hct 41.4 MCV 91.0 MCH 31.6 MCHC 34.8 RDW Std Deviation 40.6 RDW Coeff of Betty 12.2 Plt Count 334 MPV 10.0 Immature Gran % (Auto) 0.300 Neut % (Auto) 52.3 Lymph % (Auto) 40.5 [place] % (Auto) 5.3 Eos % (Auto) 1.1 Baso % (Auto) 0.5 Absolute Neuts (auto) 6.1 Absolute Lymphs (auto) 4.71 H Nucleated RBC % 0 Sodium 138 Potassium 3.9 Chloride 101 Carbon Dioxide 23.8 Anion Gap 14 BUN 19 Creatinine 1.03 Estim Creat Clear Calc 113.97 Est GFR (MDRD) Non-Af 73 BUN/Creatinine Ratio 18.1 Glucose 107 H Calcium 9.5 Total Bilirubin 0.39 Direct Bilirubin 0.09 AST 22 ALT 22 Alkaline Phosphatase 83 Total Protein 8.4 Albumin 4.4 Globulin 4.0 Lipase 21 Serum , Qual NEGATIVE Urine Color Yellow Urine Clarity Clear Urine pH 6.0 Ur Specific [place] 1.025 Urine Protein Negative Urine Glucose (UA) Normal Urine Ketones Negative Urine Occult Blood 50 H Urine Nitrite Negative Urine Bilirubin Negative Urine Urobilinogen Normal Ur Leukocyte Esterase Negative Urine RBC 0-5 SEEN Urine WBC 0 SEEN Ur Squamous Epith Cells 0 SEEN Urine Bacteria 0 SEEN Urine Mucus 0 SEEN Radiography Diagnostic Testing: Clinical Impression(s) from Imaging Studies Abdomen/Pelvis CT 05/04/25 21:41 IMPRESSION: No acute abnormalities detected. Hepatomegaly, unchanged. Diffuse colonic fecal loading seen likely reflecting constipation, recommend clinical correlation. Reading Location: [place] [id number] Discharge Plan Triage Chief Complaint: Abd Pain ED Provider: Bakari Barillas Dx/Rx/DC Orders Clinical Impression: Nonspecific abdominal pain, Hypothyroidism Instructions: Abdominal Pain Prescriptions: New oxycodone-acetaminophen [Percocet] 5-325 mg tablet 1 tab PO Q6H PRN (Reason: pain) 3 Days Qty: 12 0RF No Action levothyroxine 100 mcg tablet 100 mcg PO DAILY hydrocodone-acetaminophen 5-325 mg tablet 1 tab PO Q6H PRN PRN (Reason: Pain) 3 Days Qty: 10 0RF dicyclomine 20 mg tablet 20 mg PO TID Qty: 14 0RF ondansetron 4 mg tablet,disintegrating 4 mg PO Q8H PRN PRN (Reason: Nausea) Qty: 10 0RF Primary Care Provider: SHARA ALONSO Referrals: SHARA ALONSO CRNP [Primary Care Provider, Family Practice] Activity Restrictions/Additional Instructions: Your CT scan revealed no signs of acute abdominal pathology such as appendicitis or intestinal infection or ovarian pathology. Your lab work revealed no clinically significant changes either. Therefore take the prescribed medication as directed to help control pain but if symptoms are persistent or you are developing increasing pain or fever or have any further concerns return to the ER for repeat evaluation. Print Language: Armenian Disposition Disposition: Home, Self Care Discharge Date/Time: 05/05/25 00:50
[2025-05-05 00:44] VITALS: BP 145/80; PULSE 70; RESP 14; TEMP 37; O2SAT 100
== END 2025-05-05 00:50 | disposition home or self-care (01) ==
PROVIDERS: Emergency Provider Emergency Medicine; PCP Nurse Practitioner Adult Health; Visit Provider Emergency Medicine
DX: R10.31 Right lower quadrant pain (principal); Z68.43 Body mass index [BMI] 50.0-59.9, adult; R10.32 Left lower quadrant pain; E03.9 Hypothyroidism, unspecified; E66.9 Obesity, unspecified; Z79.890 Hormone replacement therapy; Z87.891 Personal history of nicotine dependence
CPT/HCPCS: 74177; 80048; 80076; 81001; 83690; 84703; 85025; 96361; 96374; 96375; 99283; Q9967; A4216; J2405